=== PATIENT | male | born 1975 | race Caucasian/White ===

== ENCOUNTER → 2017-12-24 12:06 | Outpatient (CLI) | payer MEDICARE, MEDICAID, SELFPAY ==
[2017-12-24 13:05] LABS: Absolute Lymphocyte Count 2.02 X10^3/ul (0.83-4.51); Absolute Neutrophil Count 2.7 X10^3/uL (2.0-7.7); Basophil# 0.01 X10^3/uL; Basophil% 0.2 % (0-1); Eosinophil# 0.07 X10^3/uL; Eosinophils% 1.3 % (0-5); Hematocrit 42.7 % (40-54); Hemoglobin 14.9 g/dl (13.0-16.5); Lymphocyte # 2.02 X10^3/ul (4.0); Lymphocyte % 36.6 % (19-41); Mean Corp Hgb Conc 34.9 g/gl (32-36); Mean Corpuscular Hgb 31.2 pg (27.0-32.0); Mean Corpuscular Volume 89.3 fL (80-94); Mean Platelet Vol. 10.2 fl (6.2-12.0); Monocyte# 0.65 X10^3/uL; Monocyte% 11.8 % (0-10); Neutrophil # 2.74 X10^3/uL (2.7-7.7); Neutrophil % 49.6 % (47-70); Platelet Count 217 K/mm3 (150-450); RBC Distribution Width CV 12.8 % (11.6-14.6); RBC Distribution Width SD 41.5 fl (35.1-43.9); Red Blood Count 4.78 M/mm3 (4.6-6.2); White Blood Count 5.5 K/mm3 (4.4-11.0)
[2017-12-24 13:13] LABS: POSITIVE COUNT NO; POSITIVE DIFFERENTIAL NO; POSITIVE MORPHOLOGY NO
[2017-12-24 13:35] LABS: AST(SGOT) 14 U/L (15-37); Alanine Aminotransfer ALT/SGPT 27 U/L (16-61); Albumin, Serum 3.8 g/dL (3.2-5.0); Alkaline Phosphatase 90 U/L (45-117); Anion Gap 8 (5-15); BUN 14 mg/dL (7-18); BUN/Creat Ratio 17.9 RATIO (10-20); Calcium,Total 8.8 mg/dL (8.5-10.1); Chloride 108 mmol/L (98-107); Creatinine, Serum 0.78 mg/dL (0.70-1.30); EST Glomerular Filtration Rate 114 mL/min (>60); Est Glom Filt Rate - Afr Amer 138 mL/min (>60); Globulin 3.8 g/dL (2.2-4.2); Glucose 99 mg/dL (74-106); Potassium 4.6 mmol/L (3.5-5.1); Protein, Total 7.6 g/dL (6.4-8.2); Sodium Level 143 mmol/L (136-145); Thyroid Stim Hormone (TSH) 1.85 uIU/mL (0.358-3.74)
== END ==
PROVIDERS: Family Provider Family Medicine Geriatric Medicine; PCP Family Medicine Geriatric Medicine; Visit Provider Family Medicine Geriatric Medicine
DX: I10 Essential (primary) hypertension (principal)
CPT/HCPCS: 36415; 80053; 84443; 85025

== ENCOUNTER → 2018-02-02 15:41 | Outpatient (CLI) | payer MEDICARE, MEDICAID, SELFPAY ==
[2018-02-02 16:18] LABS: Absolute Lymphocyte Count 2.21 X10^3/ul (0.83-4.51); Absolute Neutrophil Count 4.4 X10^3/uL (2.0-7.7); Basophil# 0.01 X10^3/uL; Basophil% 0.1 % (0-1); Eosinophil# 0.16 X10^3/uL; Eosinophils% 2.1 % (0-5); Hematocrit 38.9 % (40-54); Hemoglobin 13.1 g/dl (13.0-16.5); Lymphocyte # 2.21 X10^3/ul (4.0); Lymphocyte % 28.6 % (19-41); Mean Corp Hgb Conc 33.7 g/gl (32-36); Mean Corpuscular Hgb 30.8 pg (27.0-32.0); Mean Corpuscular Volume 91.3 fL (80-94); Mean Platelet Vol. 9.5 fl (6.2-12.0); Monocyte% 11.7 % (0-10); Neutrophil # 4.41 X10^3/uL (2.7-7.7); Neutrophil % 57.1 % (47-70); Platelet Count 375 K/mm3 (150-450); RBC Distribution Width CV 12.5 % (11.6-14.6); RBC Distribution Width SD 40.8 fl (35.1-43.9); Red Blood Count 4.26 M/mm3 (4.6-6.2); White Blood Count 7.7 K/mm3 (4.4-11.0)
[2018-02-02 16:22] LABS: POSITIVE COUNT NO; POSITIVE DIFFERENTIAL NO; POSITIVE MORPHOLOGY NO
[2018-02-02 16:29] LABS: Erythrocyte Sedimentation Rate 58 mm/hr (0-15)
[2018-02-02 16:41] LABS: Anion Gap 10 (5-15); BUN 15 mg/dL (7-18); BUN/Creat Ratio 18.2 RATIO (10-20); Calcium,Total 9.2 mg/dL (8.5-10.1); Chloride 102 mmol/L (98-107); Creatinine, Serum 0.82 mg/dL (0.70-1.30); EST Glomerular Filtration Rate 108 mL/min (>60); Est Glom Filt Rate - Afr Amer 130 mL/min (>60); Glucose 91 mg/dL (74-106); Potassium 4.1 mmol/L (3.5-5.1); Sodium Level 140 mmol/L (136-145); Uric Acid 6.8 mg/dL (3.5-7.2)
== END ==
PROVIDERS: Family Provider Family Medicine Geriatric Medicine; PCP Family Medicine Geriatric Medicine; Visit Provider Family Medicine Geriatric Medicine
DX: I10 Essential (primary) hypertension (principal); M10.9 Gout, unspecified; R60.9 Edema, unspecified
CPT/HCPCS: 36415; 80048; 84550; 85025; 85652; 86140

== ENCOUNTER → 2018-02-02 15:44 | Outpatient (CLI) | payer MEDICARE, MEDICAID, SELFPAY ==
--- NOTE | 2018-02-02 15:47 | VDLE_ITS ---
Reason For Study: LEG SWELLING RIGHT LEFT GSV is normal. GSV is normal. CFV is compressible, spontaneous, phasic, CFV is compressible, spontaneous, phasic, competent and demonstrates normal competent, and demonstrates normal augmentation. augmentation. FV is compressible, spontaneous, phasic, FV is compressible, spontaneous, phasic, competent and demonstrates normal competent and demonstrates normal augmentation. augmentation. POP V is compressible, spontaneous, phasic, POP V is compressible, spontaneous, phasic, competent and demonstrates normal competent and demonstrates normal augmentation. augmentation. T/P Trunk is compressible. T/P Trunk is compressible. PTV is compressible. PTV is compressible. RT PerV is compressible. LT PerV is compressible. Procedure Exam performed in department. A preliminary report was called and/or faxed to Dr. Hu. Interpretation Summary Deep veins of the lower extremities are bilaterally patent and compressible segmentally. There is no evidence of deep vein thrombosis on either side. Valvular competence appears intact within the proximal deep venous systems bilaterally. The greater saphenous veins appear bilaterally patent and compressible segmentally. Ordering Physician: Emiliano Hu Referring Physician: Emiliano Hu Chi Performed By: Yael Smith RVT
--- NOTE | 2018-02-02 16:10 | RAD_ITS ---
STUDY: X-RAY - RIGHT KNEE REASON FOR EXAM: Male, 43 years old. Pain, no known injury TECHNIQUE: 4 view(s) of the knee. COMPARISON: None. FINDINGS: Normal visualized distal femur. Normal visualized proximal tibia and fibula. Normal proximal tibiofibular articulation. Normal medial femorotibial compartment. Normal lateral femorotibial compartment. Normal patellofemoral articulation. There is a soft tissue prominence in the suprapatellar region suggesting a small volume joint effusion. The soft tissue structures are unremarkable. RAD/Knee 4 or More Views IMPRESSION: Mild effusion. Electronically Signed: Elinor Higginbotham MD at 7:31 EDT , Service support ,
== END ==
PROVIDERS: Family Provider Family Medicine Geriatric Medicine; PCP Family Medicine Geriatric Medicine; Visit Provider Family Medicine Geriatric Medicine
DX: R60.0 Localized edema (principal); M25.561 Pain in right knee; I10 Essential (primary) hypertension; M10.9 Gout, unspecified
CPT/HCPCS: 36415; 73564; 80048; 84550; 85025; 85652; 86140; 93970

== ENCOUNTER → 2018-03-01 11:55 | Outpatient (CLI) | payer MEDICARE, MEDICAID, SELFPAY ==
[2018-03-01 13:47] LABS: Platelet Count 168 K/mm3 (150-450)
[2018-03-01 13:58] LABS: AST(SGOT) 11 U/L (15-37); Alanine Aminotransfer ALT/SGPT 25 U/L (16-61)
[2018-03-01 14:04] LABS: Hemoglobin A1c 5.2 % (4.2-6.3)
[2018-03-01 14:08] LABS: Valproic Acid (Depakene) Level 23 ug/mL (50-100)
== END ==
PROVIDERS: Family Provider Family Medicine Geriatric Medicine; PCP Family Medicine Geriatric Medicine; Visit Provider Psychiatry & Neurology Psychiatry
DX: Z79.899 Other long term (current) drug therapy (principal)
CPT/HCPCS: 36415; 80164; 83036; 84450; 84460; 85049

== ENCOUNTER → 2018-08-18 09:39 | Outpatient (CLI) | payer MEDICARE, MEDICAID, SELFPAY ==
[2018-08-18 12:04] LABS: Platelet Count 235 K/mm3 (150-450)
[2018-08-18 12:38] LABS: AST(SGOT) 9 U/L (15-37); Alanine Aminotransfer ALT/SGPT 24 U/L (16-61)
[2018-08-18 12:40] LABS: Valproic Acid (Depakene) Level 33 ug/mL (50-100)
== END ==
PROVIDERS: Family Provider Family Medicine Geriatric Medicine; PCP Family Medicine Geriatric Medicine; Referring Provider Psychiatry & Neurology Psychiatry; Visit Provider Psychiatry & Neurology Psychiatry
DX: Z79.899 Other long term (current) drug therapy (principal)
CPT/HCPCS: 36415; 80164; 84450; 84460; 85049

== ENCOUNTER → 2018-10-07 09:49 | Outpatient (CLI) | payer MEDICARE, MEDICAID, SELFPAY ==
--- NOTE | 2018-10-07 09:52 | RAD_ITS ---
STUDY: X-RAY - LEFT KNEE REASON FOR EXAM: Male, 43 years old. Pain, 2 weeks. No injury. TECHNIQUE: 5 view(s) of the knee. COMPARISON: None. FINDINGS: There is evidence of small suprapatellar knee joint effusion. There appears to be mild thickening of the prepatellar superficial soft tissues. Clinically correlate. Osseous structures about the knee are intact, normally articulated, normally mineralized, with no significant degenerative features. RAD/Knee 4 or More Views IMPRESSION: Suspected effusion. Questionable prepatellar superficial soft tissue thickening. Clinically correlate. No acute osseous process and no significant degenerative features. Electronically Signed: Jae Salas MD at 14:05 EST Tel , Service support ,
== END ==
PROVIDERS: Family Provider Family Medicine Geriatric Medicine; PCP Family Medicine Geriatric Medicine; Referring Provider Family Medicine Geriatric Medicine; Visit Provider Family Medicine Geriatric Medicine
DX: M25.569 Pain in unspecified knee (principal)
CPT/HCPCS: 73564

== ENCOUNTER → 2018-12-21 | Outpatient (CLI) | payer MEDICARE, MEDICAID, SELFPAY ==
--- NOTE | 2018-12-21 10:30 | RAD_ITS ---
STUDY: X-RAY - LUMBAR SPINE REASON FOR EXAM: Male, 43 years old. Lifting injury. TECHNIQUE: 3 view(s) of the lumbar spine were obtained. COMPARISON: None FINDINGS: Normal lumbar lordosis. There is no substantial scoliosis. There is a normal alignment of the vertebrae. Normal vertebral bodies and endplates. Normal disc space heights. There is no evidence of acute fracture or loss of vertebral axial height. The soft tissue structures are unremarkable. RAD/Lumbar Spine 2 or 3 Views IMPRESSION: Normal x-ray examination of the lumbar spine. Electronically Signed: Dariel Cedillo DO at 23:54 EST Tel [phone], Service support ,
--- NOTE | 2018-12-21 10:31 | RAD_ITS ---
STUDY: X-RAY - THORACIC SPINE REASON FOR EXAM: Male, 43 years old. Lifting injury. Mid to lower back pain. TECHNIQUE: 4 view(s) of the thoracic spine were obtained. COMPARISON: None. FINDINGS: Normal kyphosis of the thoracic spine. There is no substantial scoliosis. Normal thoracic vertebrae and endplates. Normal disc space heights. There is no evidence of acute fracture or loss of vertebral axial height. The soft tissue structures are unremarkable. RAD/Thoracic Spine 3 Views IMPRESSION: Normal x-ray examination of the thoracic spine. Electronically Signed: Dariel Cedillo DO at 23:53 EST Tel [phone], Service support ,
== END | disposition home or self-care (01) ==
PROVIDERS: Family Provider Family Medicine Geriatric Medicine; PCP Family Medicine Geriatric Medicine; Referring Provider Family Medicine Geriatric Medicine; Visit Provider Family Medicine Geriatric Medicine
DX: M54.5 Low back pain (principal); M51.84 Other intervertebral disc disorders, thoracic region
CPT/HCPCS: 72072; 72100

== ENCOUNTER → 2018-12-30 14:05 | Outpatient (CLI) | payer MEDICARE, MEDICAID, SELFPAY ==
[2018-12-30 17:19] LABS: Absolute Lymphocyte Count 2.12 X10^3/ul (0.83-4.51); Absolute Neutrophil Count 8.5 X10^3/uL (2.0-7.7); Basophil# 0.02 X10^3/uL; Basophil% 0.2 % (0-1); Eosinophil# 0.07 X10^3/uL; Eosinophils% 0.6 % (0-5); Hematocrit 44.8 % (40-54); Hemoglobin 14.6 g/dl (13.0-16.5); Lymphocyte # 2.12 X10^3/ul (4.0); Lymphocyte % 17.3 % (19-41); Mean Corp Hgb Conc 32.6 g/gl (32-36); Mean Corpuscular Hgb 30.8 pg (27.0-32.0); Mean Corpuscular Volume 94.5 fL (80-94); Mean Platelet Vol. 10.1 fl (6.2-12.0); Monocyte# 1.29 X10^3/uL; Monocyte% 10.5 % (0-10); Neutrophil # 8.49 X10^3/uL (2.7-7.7); Neutrophil % 69.3 % (47-70); POSITIVE COUNT YES; POSITIVE DIFFERENTIAL NO; POSITIVE MORPHOLOGY YES; Platelet Count 290 K/mm3 (150-450); RBC Distribution Width CV 13.4 % (11.6-14.6); RBC Distribution Width SD 45.1 fl (35.1-43.9); Red Blood Count 4.74 M/mm3 (4.6-6.2); White Blood Count 12.3 K/mm3 (4.4-11.0)
[2018-12-30 17:32] LABS: ALB/GLOB Ratio 1.2 RATIO (0.9-2.4); AST(SGOT) 9 U/L (15-37); Alanine Aminotransfer ALT/SGPT 32 U/L (16-61); Albumin, Serum 3.7 g/dL (3.2-5.0); Alkaline Phosphatase 80 U/L (45-117); Anion Gap 10 (5-15); BUN 19 mg/dL (7-18); BUN/Creat Ratio 16.1 RATIO (10-20); Calcium,Total 8.6 mg/dL (8.5-10.1); Chloride 101 mmol/L (98-107); Creatinine, Serum 1.18 mg/dL (0.70-1.30); EST Glomerular Filtration Rate 71 mL/min (>60); Est Glom Filt Rate - Afr Amer 86 mL/min (>60); Glucose 126 mg/dL (74-106); Protein, Total 6.7 g/dL (6.4-8.2); Sodium Level 136 mmol/L (136-145); Thyroid Stim Hormone (TSH) 1.56 uIU/mL (0.358-3.74)
[2019-01-03 09:11] LABS: Pathologist Review Reviewed
== END ==
PROVIDERS: Family Provider Family Medicine Geriatric Medicine; PCP Family Medicine Geriatric Medicine; Visit Provider Family Medicine Geriatric Medicine
DX: I10 Essential (primary) hypertension (principal)
CPT/HCPCS: 36415; 80053; 84443; 85025

== ENCOUNTER → 2019-01-31 11:48 | Outpatient (CLI) | payer MEDICARE, SELFPAY ==
[2019-01-31 11:21] VITALS: BMI 29.9
[2019-01-31 13:54] LABS: Platelet Count 230 K/mm3 (150-450)
[2019-01-31 14:02] LABS: Valproic Acid (Depakene) Level 36 ug/mL (50-100)
[2019-01-31 14:03] LABS: AST(SGOT) 10 U/L (15-37); Alanine Aminotransfer ALT/SGPT 22 U/L (16-61)
== END ==
PROVIDERS: Family Provider Family Medicine Geriatric Medicine; PCP Family Medicine Geriatric Medicine; Referring Provider Psychiatry & Neurology Psychiatry; Visit Provider Psychiatry & Neurology Psychiatry
DX: Z79.899 Other long term (current) drug therapy (principal)
CPT/HCPCS: 36415; 80164; 82140; 84450; 84460; 85049

== ENCOUNTER → 2019-07-20 07:41 | Outpatient (CLI) | payer MEDICARE, SELFPAY ==
[2019-02-28 14:34] VITALS: BMI 29.9
[2019-07-20 08:13] LABS: Platelet Count 219 K/mm3 (150-450)
[2019-07-20 08:47] LABS: Valproic Acid (Depakene) Level 43 ug/mL (50-100)
[2019-07-20 08:52] LABS: AST(SGOT) 12 U/L (15-37); Alanine Aminotransfer ALT/SGPT 21 U/L (16-61); Prolactin 13.9 ng/mL
== END ==
PROVIDERS: Family Provider Family Medicine Geriatric Medicine; PCP Family Medicine Geriatric Medicine; Referring Provider Psychiatry & Neurology Psychiatry; Visit Provider Psychiatry & Neurology Psychiatry
DX: F19.10 Other psychoactive substance abuse, uncomplicated (principal); R53.83 Other fatigue; Z79.899 Other long term (current) drug therapy
CPT/HCPCS: 36415; 80164; 82140; 84146; 84450; 84460; 85049

== ENCOUNTER → 2020-07-17 05:40 | Outpatient (CLI) | payer MEDICARE, MEDICAID, SELFPAY ==
[2019-02-28 14:34] VITALS: BMI 29.9
[2020-07-17 09:34] LABS: Platelet Count 238 K/mm3 (150-450)
[2020-07-17 09:49] LABS: AST(SGOT) 24 U/L (15-37); Alanine Aminotransfer ALT/SGPT 48 U/L (16-61); Valproic Acid (Depakene) Level 36 ug/mL (50-100)
[2020-07-17 10:04] LABS: Hemoglobin A1c 4.9 % (3.8-5.6)
== END ==
PROVIDERS: PCP Family Medicine Geriatric Medicine; Visit Provider Psychiatry & Neurology Psychiatry
DX: Z79.899 Other long term (current) drug therapy (principal)
CPT/HCPCS: 36415; 80164; 82140; 83036; 84450; 84460; 85049

== ENCOUNTER → 2020-12-05 11:30 | Outpatient (CLI) | payer MEDICARE, SELFPAY ==
[2019-02-28 14:34] VITALS: BMI 29.9
--- NOTE | 2020-12-05 11:47 | CT_ITS ---
STUDY: CT BRAIN WITHOUT CONTRAST REASON FOR EXAM: Male, 45 years old. ABNORMAL GAIT RADIATION DOSAGE (If Supplied By Facility): CTDIvol = ( 44.99 ) mGy, DLP = ( 796.11 ) mGycm TECHNIQUE: Transaxial CT imaging of the brain was performed without administration of intravenous contrast material. Individualized dose optimization techniques were used for this CT. COMPARISON: No relevant priors. FINDINGS: Normal soft tissue structures. Normal calvarium. Normal size ventricles and extra-axial spaces for the patient''s age. Normal white matter tracts of the cerebral hemispheres. Normal basal ganglia and thalami. Normal brainstem. Normal cerebellum. There is no intracranial hemorrhage. There are no findings of an acute ischemic infarction. Normal visualized paranasal sinuses. CT/Brain/Head without Contrast IMPRESSION: Normal unenhanced CT scan of the brain. Electronically Signed: Elijah Salmon MD at 12:12 EST , Service support ,
[2020-12-05 11:58] LABS: Absolute Lymphocyte Count 1.88 X10^3/uL (0.83-4.51); Absolute Neutrophil Count 4.4 X10^3/uL (2.0-7.7); Basophil# 0.02 X10^3/uL; Basophil% 0.3 % (0-1); Eosinophil# 0.04 X10^3/uL; Eosinophils% 0.6 % (0-5); Hematocrit 43.1 % (40-54); Hemoglobin 14.5 g/dL (13.0-16.5); Lymphocyte # 1.88 X10^3/ul (4.0); Lymphocyte % 27.5 % (19-41); Mean Corp Hgb Conc 33.6 g/dL (32-36); Mean Corpuscular Hgb 31.5 pg (27.0-32.0); Mean Corpuscular Volume 93.5 fL (80-94); Monocyte# 0.46 X10^3/uL; Monocyte% 6.7 % (0-10); NRBC Flagged by Analyzer 0 % (0-5); Neutrophil # 4.41 X10^3/uL (2.7-7.7); Neutrophil % 64.6 % (47-70); Platelet Count 246 K/mm3 (150-450); RBC Distribution Width CV 12.8 % (11.6-14.6); RBC Distribution Width SD 43.6 fl (35.1-43.9); Red Blood Count 4.61 M/mm3 (4.6-6.2); White Blood Count 6.8 K/mm3 (4.4-11.0)
[2020-12-05 12:49] LABS: ALB/GLOB Ratio 1.2 RATIO (0.9-2.4); AST(SGOT) 19 U/L (15-37); Alanine Aminotransfer ALT/SGPT 31 U/L (16-61); Albumin, Serum 4.2 g/dL (3.2-5.0); Alkaline Phosphatase 92 U/L (45-117); Anion Gap 4 (5-15); BUN 14 mg/dL (7-18); BUN/Creat Ratio 17.9 RATIO (10-20); Calcium,Total 9.4 mg/dL (8.5-10.1); Chloride 105 mmol/L (98-107); Creatinine, Serum 0.78 mg/dL (0.70-1.30); EST Glomerular Filtration Rate 113 mL/min (>60); Est Glom Filt Rate - Afr Amer 136 mL/min (>60); Globulin 3.5 g/dL (2.2-4.2); Glucose 78 mg/dL (74-106); Protein, Total 7.7 g/dL (6.4-8.2); Sodium Level 138 mmol/L (136-145)
== END ==
LOC: POLAB3 11:44 → CT 11:44
PROVIDERS: PCP Family Medicine Geriatric Medicine; Visit Provider Family Medicine Geriatric Medicine
DX: R26.9 Unspecified abnormalities of gait and mobility (principal)
CPT/HCPCS: 36415; 70450; 80053; 85025

== ENCOUNTER → 2021-01-09 13:09 | Outpatient (CLI) | payer MEDICARE, SELFPAY ==
[2019-02-28 14:34] VITALS: BMI 29.9
[2021-01-09 16:34] LABS: Platelet Count 262 K/mm3 (150-450)
[2021-01-09 16:58] LABS: AST(SGOT) 15 U/L (15-37); Alanine Aminotransfer ALT/SGPT 30 U/L (16-61); Valproic Acid (Depakene) Level 36 ug/mL (50-100)
== END ==
PROVIDERS: PCP Family Medicine Geriatric Medicine; Visit Provider Psychiatry & Neurology Psychiatry
DX: Z79.899 Other long term (current) drug therapy (principal)
CPT/HCPCS: 36415; 80164; 83036; 84450; 84460; 85049

== ENCOUNTER → 2021-02-07 11:58 | Outpatient (CLI) | payer MEDICARE, SELFPAY ==
[2019-02-28 14:34] VITALS: BMI 29.9
[2021-02-07 12:27] LABS: Absolute Lymphocyte Count 1.49 X10^3/uL (0.83-4.51); Absolute Neutrophil Count 4.4 X10^3/uL (2.0-7.7); Basophil# 0.01 X10^3/uL; Basophil% 0.2 % (0-1); Eosinophil# 0.02 X10^3/uL; Eosinophils% 0.3 % (0-5); Hematocrit 41.3 % (40-54); Hemoglobin 14.1 g/dL (13.0-16.5); Lymphocyte # 1.49 X10^3/ul (0.83-4.51); Lymphocyte % 23.5 % (19-41); Mean Corp Hgb Conc 34.1 g/dL (32-36); Mean Corpuscular Hgb 31.5 pg (27.0-32.0); Mean Corpuscular Volume 92.4 fL (80-94); Mean Platelet Vol. 9.5 fl (6.2-12.0); Monocyte# 0.41 X10^3/uL; Monocyte% 6.5 % (0-10); NRBC Flagged by Analyzer 0 % (0-5); Neutrophil # 4.39 X10^3/uL (2.7-7.7); Neutrophil % 69.2 % (47-70); Platelet Count 250 K/mm3 (150-450); RBC Distribution Width CV 12.3 % (11.6-14.6); RBC Distribution Width SD 42.2 fl (35.1-43.9); Red Blood Count 4.47 M/mm3 (4.6-6.2); White Blood Count 6.3 K/mm3 (4.4-11.0)
[2021-02-07 13:25] LABS: Albumin, Serum 3.9 g/dL (3.2-5.0); BUN 13 mg/dL (7-18); BUN/Creat Ratio 15.9 RATIO (10-20); Creatinine, Serum 0.82 mg/dL (0.70-1.30); EST Glomerular Filtration Rate 107 mL/min (>60); Est Glom Filt Rate - Afr Amer 129 mL/min (>60); Glucose 245 mg/dL (74-106); Protein, Total 7.2 g/dL (6.4-8.2)
[2021-02-07 13:26] LABS: ALB/GLOB Ratio 1.2 RATIO (0.9-2.4); AST(SGOT) 17 U/L (15-37); Alanine Aminotransfer ALT/SGPT 26 U/L (16-61); Alkaline Phosphatase 84 U/L (45-117); Anion Gap 6 (5-15); Calcium,Total 9.3 mg/dL (8.5-10.1); Chloride 103 mmol/L (98-107); Globulin 3.3 g/dL (2.2-4.2); Potassium 3.8 mmol/L (3.5-5.1); Sodium Level 138 mmol/L (136-145); Thyroid Stim Hormone (TSH) 1.35 uIU/mL (0.358-3.74)
[2021-02-08 10:42] LABS: Hemoglobin A1c 4.9 % (3.8-5.6)
== END ==
PROVIDERS: PCP Family Medicine Geriatric Medicine; Visit Provider Family Medicine Geriatric Medicine
DX: I10 Essential (primary) hypertension (principal); R79.9 Abnormal finding of blood chemistry, unspecified
CPT/HCPCS: 36415; 80053; 83036; 84443; 85025

== ENCOUNTER → 2022-02-10 | Outpatient (CLI) | payer MEDICARE, SELFPAY ==
[2022-02-10 11:36] LABS: Absolute Lymphocyte Count 1.98 X10^3/uL (0.83-4.51); Absolute Neutrophil Count 5.9 X10^3/uL (2.0-7.7); Basophil# 0.02 X10^3/uL; Basophil% 0.2 % (0-1); Eosinophil# 0.05 X10^3/uL; Eosinophils% 0.6 % (0-5); Hematocrit 43.2 % (40-54); Hemoglobin 14.7 g/dL (13.0-16.5); Lymphocyte # 1.98 X10^3/ul (0.83-4.51); Mean Corpuscular Hgb 31.6 pg (27.0-32.0); Mean Corpuscular Volume 92.9 fL (80-94); Mean Platelet Vol. 9.7 fl (6.2-12.0); Monocyte# 0.68 X10^3/uL; Monocyte% 7.9 % (0-10); NRBC Flagged by Analyzer 0 % (0-5); Neutrophil # 5.85 X10^3/uL (2.7-7.7); Platelet Count 232 K/mm3 (150-450); RBC Distribution Width CV 12.7 % (11.6-14.6); RBC Distribution Width SD 43.5 fl (35.1-43.9); Red Blood Count 4.65 M/mm3 (4.6-6.2); White Blood Count 8.6 K/mm3 (4.4-11.0)
[2022-02-10 12:01] LABS: ALB/GLOB Ratio 1.2 RATIO (0.9-2.4); AST(SGOT) 11 U/L (15-37); Alanine Aminotransfer ALT/SGPT 15 U/L (16-61); Alkaline Phosphatase 89 U/L (45-117); Anion Gap 4 (5-15); BUN 17 mg/dL (7-18); BUN/Creat Ratio 19.6 RATIO (10-20); Calcium,Total 8.8 mg/dL (8.5-10.1); Chloride 105 mmol/L (98-107); Creatinine, Serum 0.87 mg/dL (0.70-1.30); EST Glomerular Filtration Rate 99 mL/min (>60); Est Glom Filt Rate - Afr Amer 120 mL/min (>60); Globulin 3.3 g/dL (2.2-4.2); Glucose 101 mg/dL (74-106); Potassium 4.3 mmol/L (3.5-5.1); Protein, Total 7.3 g/dL (6.4-8.2); Sodium Level 139 mmol/L (136-145); Uric Acid 4.1 mg/dL (3.5-7.2)
== END | disposition home or self-care (01) ==
LOC: POLAB3 10:16
PROVIDERS: PCP Family Medicine Geriatric Medicine; Visit Provider Family Medicine Geriatric Medicine
DX: I10 Essential (primary) hypertension (principal); M10.9 Gout, unspecified
CPT/HCPCS: 36415; 80053; 84443; 84550; 85025

== ENCOUNTER → 2022-11-25 | Outpatient (CLI) | payer MEDICARE, MEDICAID, SELFPAY ==
[2022-11-25 10:56] LABS: Absolute Lymphocyte Count 2.09 X10^3/uL (0.83-4.51); Basophil# 0.02 X10^3/uL; Basophil% 0.3 % (0-1); Eosinophil# 0.07 X10^3/uL; Eosinophils% 0.9 % (0-5); Hematocrit 42.2 % (40-54); Hemoglobin 14.7 g/dL (13.0-16.5); Lymphocyte # 2.09 X10^3/ul (0.83-4.51); Lymphocyte % 26.5 % (19-41); Mean Corp Hgb Conc 34.8 g/dL (32-36); Mean Corpuscular Hgb 31.7 pg (27.0-32.0); Mean Corpuscular Volume 90.9 fL (80-94); Mean Platelet Vol. 9.4 fl (6.2-12.0); Monocyte# 0.69 X10^3/uL; Monocyte% 8.8 % (0-10); NRBC Flagged by Analyzer 0 % (0-5); Neutrophil # 4.98 X10^3/uL (2.7-7.7); Neutrophil % 63.1 % (47-70); Platelet Count 221 K/mm3 (150-450); RBC Distribution Width CV 12.7 % (11.6-14.6); RBC Distribution Width SD 41.5 fl (35.1-43.9); Red Blood Count 4.64 M/mm3 (4.6-6.2); White Blood Count 7.9 K/mm3 (4.4-11.0)
[2022-11-25 11:26] LABS: Valproic Acid (Depakene) Level 27 ug/mL (50-100)
[2022-11-25 11:43] LABS: ALB/GLOB Ratio 1.2 RATIO (0.9-2.4); AST(SGOT) 14 U/L (15-37); Alanine Aminotransfer ALT/SGPT 8 U/L (16-61); Alkaline Phosphatase 116 U/L (45-117); Anion Gap 5 (5-15); BUN 13 mg/dL (7-18); BUN/Creat Ratio 13.6 RATIO (10-20); Calcium,Total 9.4 mg/dL (8.5-10.1); Chloride 108 mmol/L (98-107); Creatinine, Serum 0.96 mg/dL (0.70-1.30); EST Glomerular Filtration Rate 89 mL/min (>60); Est Glom Filt Rate - Afr Amer 107 mL/min (>60); Globulin 3.4 g/dL (2.2-4.2); Glucose 97 mg/dL (74-106); Potassium 4.2 mmol/L (3.5-5.1); Protein, Total 7.4 g/dL (6.4-8.2); Sodium Level 143 mmol/L (136-145); Thyroid Stim Hormone (TSH) 2.99 uIU/mL (0.358-3.74)
== END | disposition home or self-care (01) ==
PROVIDERS: PCP Family Medicine Geriatric Medicine; Visit Provider Family Medicine Geriatric Medicine
DX: I10 Essential (primary) hypertension (principal); Z79.899 Other long term (current) drug therapy
CPT/HCPCS: 36415; 80053; 80164; 82140; 84443; 85025

== ENCOUNTER → 2023-02-25 | Outpatient (CLI) | payer MEDICARE, MEDICAID, SELFPAY ==
[2023-02-25 12:18] LABS: Erythrocyte Sedimentation Rate 6 mm/hr (0-20)
[2023-02-25 12:20] LABS: ALB/GLOB Ratio 1.1 RATIO (0.9-2.4); AST(SGOT) 9 U/L (15-37); Alanine Aminotransfer ALT/SGPT 13 U/L (16-61); Albumin, Serum 3.9 g/dL (3.2-5.0); Alkaline Phosphatase 110 U/L (45-117); Anion Gap 6 (5-15); BUN 15 mg/dL (7-18); BUN/Creat Ratio 16.2 RATIO (10-20); CRP < 2.90 mg/L (0.0-3.0); Calcium,Total 9.7 mg/dL (8.5-10.1); Chloride 105 mmol/L (98-107); Creatinine, Serum 0.92 mg/dL (0.70-1.30); EST Glomerular Filtration Rate 92 mL/min (>60); Est Glom Filt Rate - Afr Amer 111 mL/min (>60); Globulin 3.6 g/dL (2.2-4.2); Glucose 89 mg/dL (74-106); LDH 156 U/L (87-241); Protein, Total 7.5 g/dL (6.4-8.2); Sodium Level 142 mmol/L (136-145); Thyroid Stim Hormone (TSH) 1.81 uIU/mL (0.358-3.74)
[2023-02-25 13:18] LABS: Absolute Lymphocyte Count 1.73 X10^3/uL (0.83-4.51); Absolute Neutrophil Count 5.4 X10^3/uL (2.0-7.7); Basophil# 0.03 X10^3/uL; Basophil% 0.4 % (0-1); Eosinophil# 0.05 X10^3/uL; Eosinophils% 0.6 % (0-5); Hematocrit 45.3 % (40-54); Hemoglobin 14.9 g/dL (13.0-16.5); Lymphocyte # 1.73 X10^3/ul (0.83-4.51); Lymphocyte % 21.8 % (19-41); Mean Corp Hgb Conc 32.9 g/dL (32-36); Mean Corpuscular Hgb 31.3 pg (27.0-32.0); Mean Corpuscular Volume 95.2 fL (80-94); Mean Platelet Vol. 9.7 fl (6.2-12.0); Monocyte# 0.71 X10^3/uL; NRBC Flagged by Analyzer 0 % (0-5); Neutrophil # 5.36 X10^3/uL (2.7-7.7); Neutrophil % 67.7 % (47-70); Platelet Count 223 K/mm3 (150-450); RBC Distribution Width CV 12.3 % (11.6-14.6); RBC Distribution Width SD 43.1 fl (35.1-43.9); Red Blood Count 4.76 M/mm3 (4.6-6.2); White Blood Count 7.9 K/mm3 (4.4-11.0)
[2023-02-26 13:07] LABS: Anti-Centromere B Ab <0.2 AI (0.0-0.9); Anti-Chromatin <0.2 AI (0.0-0.9); Anti-Jo <0.2 AI (0.0-0.9); Anti-Mitochondrial AB <20.0 Units (0.0-20.0); Anti-Scleroderma-70 AB <0.2 AI (0.0-0.9); Anti-dsDNA Ab 1 IU/mL (0-9); RNP Ab <0.2 AI (0.0-0.9); SJOGREN'S Anti-SS-A test < 0.2 AI (0.0-0.9); SJOGREN'S Anti-SS-B test < 0.2 AI (0.0-0.9); Smith Ab <0.2 AI (0.0-0.9)
== END | disposition home or self-care (01) ==
LOC: POLAB3 10:03
PROVIDERS: Internal Medicine Gastroenterology; PCP Family Medicine Geriatric Medicine; Visit Provider Family Medicine Geriatric Medicine
DX: I10 Essential (primary) hypertension (principal)
CPT/HCPCS: 36415; 80053; 83516; 83615; 84443; 85025; 85652; 86140; 86225; 86235

== ENCOUNTER → 2023-04-07 | Outpatient (CLI) | payer MEDICARE, MEDICAID, SELFPAY ==
--- NOTE | 2023-04-07 09:19 | US_ITS ---
STUDY: ABDOMINAL ULTRASOUND - RIGHT UPPER QUADRANT REASON FOR VISIT: Male, 48 years old hyperammonemia TECHNIQUE: Ultrasound evaluation of the right upper quadrant was performed with real-time and static roger-scale imaging. TECHNICAL QUALITY: Limited. Poor visibility of the pancreas and common bile duct. COMPARISON: None. FINDINGS: Liver: Normal size and echogenicity. Normal contour. No mass lesion. No intrahepatic biliary ductal dilation. Gallbladder: Anechoic fluid in the gallbladder without abnormal distention. No wall thickening, sludge or stones. No polyp. Negative sonographic Newsome''s sign. Common Bile Duct (C.B.D.): The common bile duct is not visualized, obscured by gas. Pancreas: Very limited assessment. No abnormality within limits of the exam. Right Kidney: 12.6 cm length kidney shows normal size and contour. No cortical thinning. No solid or cystic mass lesion. No hydronephrosis. No genitourinary stone. US/Abdomen Limited IMPRESSION: No abnormality within limits of the exam. Electronically Signed: Hunter Ortega DO at 20:44 EDT ,
--- NOTE | 2023-04-07 09:19 | US_ITS ---
STUDY: ABDOMINAL ULTRASOUND - ELASTOGRAPHY REASON FOR VISIT: Male, 48 years old. Elevated ammonia. TECHNIQUE: Liver stiffness measurements were obtained on a Fnbox RS 85 ultrasound machine using a CA 1-7 probe following the SRU guidelines. 3 measurements were obtained using a 2-D-SWE method. TheIQR/M was 13% suggesting a quality data set. TECHNICAL QUALITY: Adequate. COMPARISON: None. FINDINGS: Liver: There is no demonstrated mass lesion. Median liver stiffness measured 6.4 kPa. Abdomen: There is no demonstrated mass lesion. US/Elastography Parenchyma/Organ IMPRESSION: Liver stiffness measures 6.4 kPa compatible with F2-F3 (Mild to moderate liver fibrosis) Metavir score. Electronically Signed: Elijah Salmon MD at 13:50 EDT ,
== END | disposition home or self-care (01) ==
LOC: US 09:16
PROVIDERS: PCP Family Medicine Geriatric Medicine; Referring Provider Internal Medicine Gastroenterology; Visit Provider Internal Medicine Gastroenterology
DX: E72.20 Disorder of urea cycle metabolism, unspecified (principal)
CPT/HCPCS: 76705; 76981

== ENCOUNTER → 2023-05-07 | Outpatient (CLI) | payer MEDICARE, MEDICAID, SELFPAY ==
[2023-03-25] MEDS: Lactated Ringers 1,000 ML 15 ML IV (10:19)
[2023-03-25 10:20] VITALS: BP 121/95; PULSE 104; RESP 18; TEMP 37.1; O2SAT 97; BMI 26.1
--- NOTE | 2023-03-25 10:29 | HP.PCM_ITS ---
HPI - General General Date of Admission: 03/25/23 Date of Service: 03/25/23 Chief Complaint: screening colonoscopy HPI Narrative 48 M who presents to the office today for an initial office visit regarding hyperammonemia and need for screening colonoscopy. He has never had a colonoscopy in the past. PCP OV 11.25.22 for chronic disease f/u of Parkinson, schizoaffective disorder, depression, OCD, PTSD, HTN, hyperlipidemia, gout, BPH ?Biochemical 11.25.22?CBC (plt 221), CMP, ? Valproic acid L27, ammonia H35, AST L14-ALT L3-AP116 *BGI established 02.20.23 presents today with his caregivers Mahsa and Lisseth. There is not much history are Tremaine is unable to provide family or personal ROS Const Constitutional: No anorexia, fatigue, fever(s), weight change or sleep problems Eyes Eyes: No change in vision ENT ENT: No abnormal hearing, difficulty swallowing, mouth lesions, tongue swelling or throat swelling Resp Respiratory: No cough or shortness of breath Cardio Cardiology: No chest pain at rest, chest pain with exertion, shortness of breath or dyspnea on exertion Gastro GI: No difficulty swallowing Genitourinary Male: No difficulty urinating or burning urination Musc Musculoskeletal: No joint pain, joint swelling, muscle weakness or decreased muscle mass Skin Skin: No hair loss in leg, yellowing of the eye, itchy eyes, rash, skin ulcer or skin swelling Neuro Neurology: No abnormal hearing, abnormal movements, confusion, unsteady gait/balance or memory loss Psych Psychiatric: No anxiety, No confusion and No memory loss Endo Endocrine: No fatigue or weight change Aller/Imm Allergy/Immunologic: No itchy eyes, throat swelling or tongue swelling Tristan/Lymp Hematologic/Lymphatic: No easy bleeding, easy bruising or enlarged lymph nodes Exam Const General: cooperative and comfortable Nutritional Appearance: average body habitus and well nourished [facility] Head: normal to inspection Ears: hearing grossly normal bilaterally Nose: external nose normal Face and sinus: normal facial exam Mouth: oral mucosae normal Throat: posterior oropharynx normal Eyes General: appearance normal, both eyes and all related structures Neck Neck: normal visual inspection Chest Chest palpation & inspection: normal inspection of the chest and normal palpation of entire chest wall Resp Effort & Inspection: normal respiratory effort Auscultation: Bilateral: Clear to Auscultation Cardio Palpation: normal PMI Rate: regular rate Rhythm: regular rhythm GI Inspection: normal to inspection Auscultation: normal bowel sounds Percussion: normal to percussion Palpation: no hepatosplenomegaly Skin General: no rashes or lesions noted Neuro General: patient alert Extrem General: normal to inspection Psych Affect: normal affect Quality Reporting Tobacco Screening ([facility] 138) Smoking Status: Never smoker Assessment and Plan Assessment and Plan (1) Hyperammonemia: ?Status:?Chronic ?Plan: The use of valproic acid frequently results in elevated plasma ammonia. In some people, hyperammonemia may be clinically significant, resulting in hyperammonemic encephalopathy, which may be severe. Valproic acid-induced hyperammonemic encephalopathy may occur in people with normal liver function, despite normal doses and serum levels of VPA. He should be? started on oral lactulose, while his w/u is progress to look for signs and chronic liver disease.? Orders: Orders Comprehensive Metabolic Profil Today E72.20 - Disorder of urea cycle metabolism, unspecified ? CRP Today E72.20 - Disorder of urea cycle metabolism, unspecified ? LDH Today E72.20 - Disorder of urea cycle metabolism, unspecified ? CBC W/Diff, Automated Today E72.20 - Disorder of urea cycle metabolism, unspecified ? Erythrocyte Sed Rate Today E72.20 - Disorder of urea cycle metabolism, unspecified ? Anti-Mitochondrial AB Today E72.20 - Disorder of urea cycle metabolism, unspecified ? CANDELARIA Comprehensive Panel Today E72.20 - Disorder of urea cycle metabolism, unspecified ? Angiotensin Convert Enzyme Today E72.20 - Disorder of urea cycle metabolism, unspecified ? ANCA Today E72.20 - Disorder of urea cycle metabolism, unspecified ? Anti-Smooth Muscle ABS Today E72.20 - Disorder of urea cycle metabolism, unspecified ? Ceruloplasmin Today E72.20 - Disorder of urea cycle metabolism, unspecified ? Copper, Serum or Plasma Today E72.20 - Disorder of urea cycle metabolism, unspecified ? Haptoglobin Today E72.20 - Disorder of urea cycle metabolism, unspecified ? Ammonia Today E72.20 - Disorder of urea cycle metabolism, unspecified ? Abdomen Limited Today E72.20 - Disorder of urea cycle metabolism, unspecified ? Elastography Parenchyma/Organ Today E72.20 - Disorder of urea cycle metabolism, unspecified ? Medications: New lactulose 10 grams (15 mL) PO DAILY 473 mL 11RF ? ? PFSH Medical History (Updated 03/20/23 @ 11:41 by Manasa Kline) Anxiety Arthritis BPH (benign prostatic hyperplasia) Gastric reflux GERD (gastroesophageal reflux disease) Gout High cholesterol Hypertension Mental and behavioral problem in adult Moderate major depression Obsessive compulsive disorder Outbursts of explosive behavior Parkinsons disease PTSD (post-traumatic stress disorder) Schizophrenia Unsteady gait Uses wheelchair Wears glasses Home Medications atenolol 50 mg tablet 50 mg PO DAILY 01/31/19 [History Last Taken 03/25/23] divalproex 500 mg tablet,delayed release 500 mg PO QHS 01/31/19 [History Last Taken Unknown] multivitamin (Daily Multi-Vitamin tablet) 1 tab PO DAILY 01/31/19 [History Last Taken Unknown] quetiapine 400 mg tablet,extended release 24 hr (Seroquel XR) 400 mg PO BID 01/31/19 [History Last Taken 03/25/23] tamsulosin 0.4 mg capsule 0.4 mg PO BID 01/31/19 [History Last Taken Unknown] allopurinol 300 mg tablet 300 mg PO DAILY 11/28/22 [History Last Taken Unknown] amantadine HCl 100 mg capsule 100 mg PO BID 11/28/22 [History Last Taken Unknown] fluvoxamine 100 mg tablet 100 mg PO 0800 11/28/22 [History Last Taken 03/25/23] fluvoxamine 50 mg tablet 50 mg PO QHS 11/28/22 [History Last Taken Unknown] haloperidol 5 mg tablet 5 mg PO BID 11/28/22 [History Last Taken 03/25/23] pravastatin 40 mg tablet 40 mg PO QHS 11/28/22 [History Last Taken Unknown] lactulose 10 gram/15 mL (15 mL) oral solution 10 g (15 mL) PO DAILY #473 mL 02/20/23 [Rx Last Taken Unknown] acetaminophen 650 mg tablet,extended release 1,300 mg PO Q12H PRN PAIN 03/20/23 [History Last Taken Unknown] calcium carbonate 500 mg calcium (1,250 mg) tablet (Oyster Shell Calcium 500) 500 mg PO DAILY 03/20/23 [History Last Taken Unknown] carbidopa ER 50 mg-levodopa 200 mg tablet,extended release 1 tab PO TID 03/20/23 [History Last Taken 03/25/23] Allergy/AdvReac Type Severity Reaction Status Date / Time No Known Allergies Allergy Verified 03/25/23 10:18 Social History Smoking Status: Never smoker alcohol intake: never substance use type: does not use what type of physical activity do you participate in: none ROS Review of Systems ROS Unobtainable: other Constitutional Constitutional: Denies fatigue, fever(s), poor appetite, weight gain or weight loss ENT HEENT: Denies mouth lesions Cardiovascular Cardiovascular: Denies abdominal bloating, abdominal edema or abdominal pain Respiratory/Chest Respiratory/Chest: Denies change in mental status, change in phlegm color, chest congestion or chest tightness Gastrointestinal Gastrointestinal: Denies belching, bloating, change in bowel habits, change in stool character, chewing difficulty, coffee ground emesis, constipation, cramping, diarrhea, dyspepsia, dysphagia, early satiety, excessive flatus, fecal incontinence, heartburn, hematemesis, hematochezia, hemorrhoids, loose stools, melena, nausea, odynophagia, rectal bleeding, tenesmus, vomiting or weight changes Genitourinary Genitourinary: Denies abdominal discomfort, burning urination or itching Musculoskeletal Musculoskeletal: Reports as per HPI; Denies muscle weakness or myalgias Integumentary Integumentary: Denies jaundice Neurologic Neurologic: Denies lack of coordination or weakness Psychiatric Psychiatric: Denies confusion, depression, memory loss, mood swings, paranoia or suicidal ideation Endocrine Endocrinology: Denies systems reviewed and no addt'l complaints, except as documented Hematologic/Lymphatic Hematologic/Lymphatic: Denies anemia, easy bleeding, easy bruising or lymphadenopathy Allergic/Immunologic Allergic/Immunologic: Denies systems reviewed and no addt'l complaints, except as documented Physical Exam Const alert, oriented x3, no apparent distress, healthy appearing and well nourished General Appearance: cooperative, comfortable, well kempt and well developed Orientation / Consciousness: awake and oriented to person HEENT Head and Scalp: normocephalic and atraumatic Face and Sinus: normal facial exam Mouth: oral and palatal mucosa normal Eyes General Eye: normal appearance of both eyes Neck full ROM Lymph Lymphatic: no lymphadenopathy noted Chest inspection of chest normal Resp normal respiratory effort and no use of accessory muscles Cardio regular rate and regular rhythm GI normal to inspection, nondistended, normoactive bowel sounds, soft to palpation, non-tender, non-distended and no masses Auscultation: normoactive bowel sounds Palpation: soft Percussion: normal to percussion Rectal Exam: visual inspection normal and normal sphincter tone no CVA tenderness Back/Spine no CVA tenderness and normal ROM Extremity normal to inspection Peripheral Pulses: Yes pulses 2+ throughout Skin no rashes or lesions noted General Skin Exam: no breakdown, elasticity normal and turgor normal Neuro oriented x3 Motor Exam: strength 5/5 throughout Psych mental status grossly normal Appearance: grossly normal Attitude: calm Activity / Motor Behavior: appropriate eye contact Speech: normal speech Thought Process: normal thought process Thought Content: normal thought content Attention / Concentration: attention grossly intact Memory / Cognition: memory grossly intact Insight: insight good Judgement: judgement good Assessment & Plan Assessment/Plan (1) Encounter for screening for malignant neoplasm of colon: PLAN: Patient and the patient's power of commercial real estate attorney were explained alternatives, risk, benefits including outstanding bleeding, infection, sepsis, perforation, need for emergent and . He will have an ASA of 2.
--- NOTE | 2023-03-25 10:54 | SUR.PREOP ---
Incontinent of liquid Brown stool. enema given to clear, aid at bedside. pt tolerated well.
--- NOTE | 2023-03-25 11:02 | SUR.PREOP ---
Endoscopy nurses notified that pt may not be cleaned out enough from prep, enema given. Pt unable to retain enema. They will discuss with Dr Enrique.
== END | disposition home or self-care (01) ==
LOC: EN 08:45
PROVIDERS: PCP Family Medicine Geriatric Medicine; Referring Provider Family Medicine Geriatric Medicine; Visit Provider Internal Medicine Gastroenterology
DX: Z01.818 Encounter for other preprocedural examination (principal)
CPT/HCPCS: J7120; J2405

== ENCOUNTER → 2023-07-14 | Outpatient (CLI) | payer MEDICARE, MEDICAID, SELFPAY ==
[2023-07-22 07:09] LABS: Angiotensin Convert Enzyme 27 U/L (14-82); Anti-Smooth Muscle ABS 4 Units (0-19); Ceruloplasmin 20.1 mg/dL (16.0-31.0); Copper, Serum or Plasma 92 ug/dL (69-132); Cytoplasmic Ab (C-ANCA) <1:20 titer (Neg:<1:20); Perinuclear Ab (P-ANCA) <1:20 titer (Neg:<1:20)
== END | disposition home or self-care (01) ==
LOC: LAB 09:08
PROVIDERS: PCP Family Medicine Geriatric Medicine; Referring Provider Internal Medicine Gastroenterology; Visit Provider Internal Medicine Gastroenterology
DX: E72.20 Disorder of urea cycle metabolism, unspecified (principal)
CPT/HCPCS: 36415; 82140; 82164; 82390; 82525; 83516; 86256

== ENCOUNTER → 2023-09-02 | Outpatient (CLI) | payer MEDICARE, MEDICAID, SELFPAY ==
[2023-09-02 12:23] LABS: Absolute Lymphocyte Count 1.66 X10^3/uL (0.83-4.51); Absolute Neutrophil Count 6.2 X10^3/uL (2.0-7.7); Basophil# 0.02 X10^3/uL; Basophil% 0.2 % (0-1); Eosinophil# 0.04 X10^3/uL; Eosinophils% 0.5 % (0-5); Hematocrit 43.6 % (40-54); Hemoglobin 14.6 g/dL (13.0-16.5); Lymphocyte # 1.66 X10^3/ul (0.83-4.51); Lymphocyte % 19.3 % (19-41); Mean Corp Hgb Conc 33.5 g/dL (32-36); Mean Corpuscular Hgb 31.3 pg (27.0-32.0); Mean Corpuscular Volume 93.6 fL (80-94); Mean Platelet Vol. 9.8 fl (6.2-12.0); Monocyte# 0.61 X10^3/uL; Monocyte% 7.1 % (0-10); NRBC Flagged by Analyzer 0 % (0-5); Neutrophil # 6.22 X10^3/uL (2.7-7.7); Neutrophil % 72.6 % (47-70); Platelet Count 209 K/mm3 (150-450); RBC Distribution Width CV 12.6 % (11.6-14.6); RBC Distribution Width SD 43.3 fl (35.1-43.9); Red Blood Count 4.66 M/mm3 (4.6-6.2); White Blood Count 8.6 K/mm3 (4.4-11.0)
[2023-09-02 12:47] LABS: ALB/GLOB Ratio 1.2 RATIO (0.9-2.4); AST(SGOT) 7 U/L (15-37); Alanine Aminotransfer ALT/SGPT 8 U/L (16-61); Alkaline Phosphatase 88 U/L (45-117); Anion Gap 3 (5-15); BUN 15 mg/dL (7-18); BUN/Creat Ratio 16.3 RATIO (10-20); Calcium,Total 9.5 mg/dL (8.5-10.1); Chloride 105 mmol/L (98-107); Cholesterol 106 mg/dL (200); Creatinine, Serum 0.92 mg/dL (0.70-1.30); EST Glomerular Filtration Rate 92 mL/min (>60); Est Glom Filt Rate - Afr Amer 112 mL/min (>60); Globulin 3.3 g/dL (2.2-4.2); Glucose 97 mg/dL (74-106); High Density Lipoprotein 49 mg/dL; Potassium 4.4 mmol/L (3.5-5.1); Protein, Total 7.3 g/dL (6.4-8.2); Sodium Level 141 mmol/L (136-145); Thyroid Stim Hormone (TSH) 1.96 uIU/mL (0.358-3.74); Triglycerides 63 mg/dL; Very Low Density Lipoprotein 13 mg/dL (5-40)
== END | disposition home or self-care (01) ==
LOC: POLAB3 10:54
PROVIDERS: PCP Family Medicine Geriatric Medicine; Visit Provider Family Medicine Geriatric Medicine
DX: I10 Essential (primary) hypertension (principal); E78.5 Hyperlipidemia, unspecified; M10.9 Gout, unspecified
CPT/HCPCS: 36415; 80053; 80061; 84443; 85025

== ENCOUNTER → 2024-03-01 | Outpatient (CLI) | payer MEDICARE, MEDICAID, SELFPAY ==
[2024-03-01 11:10] LABS: Absolute Lymphocyte Count 1.31 X10^3/uL (0.83-4.51); Absolute Neutrophil Count 6.1 X10^3/uL (2.0-7.7); Basophil# 0.02 X10^3/uL; Basophil% 0.2 % (0-1); Eosinophil# 0.03 X10^3/uL; Eosinophils% 0.4 % (0-5); Hematocrit 40.9 % (40-54); Hemoglobin 13.8 g/dL (13.0-16.5); Lymphocyte # 1.31 X10^3/ul (0.83-4.51); Lymphocyte % 16.3 % (19-41); Mean Corp Hgb Conc 33.7 g/dL (32-36); Mean Corpuscular Hgb 31.6 pg (27.0-32.0); Mean Corpuscular Volume 93.6 fL (80-94); Mean Platelet Vol. 9.8 fl (6.2-12.0); Monocyte# 0.57 X10^3/uL; Monocyte% 7.1 % (0-10); NRBC Flagged by Analyzer 0 % (0-5); Neutrophil # 6.07 X10^3/uL (2.7-7.7); Neutrophil % 75.8 % (47-70); Platelet Count 209 K/mm3 (150-450); RBC Distribution Width CV 12.4 % (11.6-14.6); RBC Distribution Width SD 42.6 fl (35.1-43.9); Red Blood Count 4.37 M/mm3 (4.6-6.2)
[2024-03-01 11:51] LABS: ALB/GLOB Ratio 1.2 RATIO (0.9-2.4); AST(SGOT) 13 U/L (15-37); Alanine Aminotransfer ALT/SGPT 8 U/L (16-61); Albumin, Serum 3.6 g/dL (3.2-5.0); Alkaline Phosphatase 89 U/L (45-117); Anion Gap 4 (5-15); BUN 11 mg/dL (7-18); BUN/Creat Ratio 13.3 RATIO (10-20); Chloride 105 mmol/L (98-107); Cholesterol 90 mg/dL (200); Creatinine, Serum 0.82 mg/dL (0.70-1.30); EST Glomerular Filtration Rate 105 mL/min (>60); Est Glom Filt Rate - Afr Amer 127 mL/min (>60); Globulin 3.1 g/dL (2.2-4.2); Glucose 138 mg/dL (74-106); High Density Lipoprotein 48 mg/dL; PSA,Total - Annual Screen 0.44 ng/mL (0.00-4.00); Potassium 4.1 mmol/L (3.5-5.1); Protein, Total 6.7 g/dL (6.4-8.2); Sodium Level 140 mmol/L (136-145); Thyroid Stim Hormone (TSH) 2.66 uIU/mL (0.358-3.74); Triglycerides 95 mg/dL; Uric Acid 3.6 mg/dL (3.5-7.2); Very Low Density Lipoprotein 19 mg/dL (5-40)
== END | disposition home or self-care (01) ==
LOC: LAB 09:53
PROVIDERS: PCP Family Medicine Geriatric Medicine; Referring Provider Family Medicine Geriatric Medicine; Visit Provider Family Medicine Geriatric Medicine
DX: I10 Essential (primary) hypertension (principal); E78.5 Hyperlipidemia, unspecified; M10.9 Gout, unspecified; Z12.5 Encounter for screening for malignant neoplasm of prostate
CPT/HCPCS: 36415; 80053; 80061; 84153; 84443; 84550; 85025; G0103

== ENCOUNTER → 2024-08-25 | Outpatient (CLI) | payer MEDICARE, MEDICAID, SELFPAY ==
[2024-08-25 10:38] LABS: Absolute Lymphocyte Count 1.68 X10^3/uL (0.83-4.51); Basophil# 0.03 X10^3/uL; Basophil% 0.4 % (0-1); Eosinophil# 0.04 X10^3/uL; Eosinophils% 0.5 % (0-5); Hematocrit 43.5 % (40-54); Hemoglobin 14.8 g/dL (13.0-16.5); Lymphocyte # 1.68 X10^3/ul (0.83-4.51); Lymphocyte % 22.6 % (19-41); Mean Corpuscular Hgb 31.4 pg (27.0-32.0); Mean Corpuscular Volume 92.2 fL (80-94); Mean Platelet Vol. 9.4 fl (6.2-12.0); Monocyte# 0.62 X10^3/uL; Monocyte% 8.3 % (0-10); NRBC Flagged by Analyzer 0 % (0-5); Neutrophil # 5.02 X10^3/uL (2.7-7.7); Neutrophil % 67.5 % (47-70); Platelet Count 228 K/mm3 (150-450); RBC Distribution Width CV 12.8 % (11.6-14.6); RBC Distribution Width SD 43.5 fl (35.1-43.9); Red Blood Count 4.72 M/mm3 (4.6-6.2); White Blood Count 7.4 K/mm3 (4.4-11.0)
[2024-08-25 11:04] LABS: Valproic Acid (Depakene) Level 33 ug/mL (50-100)
[2024-08-25 11:08] LABS: ALB/GLOB Ratio 1.2 RATIO (0.9-2.4); AST(SGOT) 14 U/L (15-37); Alanine Aminotransfer ALT/SGPT 11 U/L (16-61); Alkaline Phosphatase 110 U/L (45-117); Anion Gap 3 (5-15); BUN 12 mg/dL (7-18); BUN/Creat Ratio 13.8 RATIO (10-20); Calcium,Total 9.7 mg/dL (8.5-10.1); Chloride 102 mmol/L (98-107); Creatinine, Serum 0.87 mg/dL (0.70-1.30); EST Glomerular Filtration Rate 98 mL/min (>60); Est Glom Filt Rate - Afr Amer 118 mL/min (>60); Globulin 3.3 g/dL (2.2-4.2); Glucose 98 mg/dL (74-106); Potassium 4.2 mmol/L (3.5-5.1); Protein, Total 7.3 g/dL (6.4-8.2); Sodium Level 138 mmol/L (136-145)
[2024-08-25 11:13] LABS: Cholesterol 107 mg/dL (200); High Density Lipoprotein 51 mg/dL; Triglycerides 89 mg/dL; Uric Acid 3.8 mg/dL (3.5-7.2); Very Low Density Lipoprotein 18 mg/dL (5-40)
[2024-08-25 12:40] LABS: Hemoglobin A1c 5.2 % (3.8-5.6)
[2024-08-26 04:08] LABS: PROLACTIN 15.1 ng/mL (3.6-25.2)
== END | disposition home or self-care (01) ==
PROVIDERS: PCP Family Medicine Geriatric Medicine; Referring Provider Psychiatry & Neurology Psychiatry; Visit Provider Psychiatry & Neurology Psychiatry
DX: I10 Essential (primary) hypertension (principal); E78.5 Hyperlipidemia, unspecified; M10.9 Gout, unspecified; Z79.899 Other long term (current) drug therapy
CPT/HCPCS: 36415; 80053; 80061; 80164; 82140; 83036; 84146; 84443; 84550; 85025

== ENCOUNTER 2025-03-02 12:46 | Observation (INO) | payer MEDICARE, MEDICAID, SELFPAY ==
[2025-03-02 12:47] VITALS: BP 91/71; PULSE 104; RESP 28; TEMP 37.1; O2SAT 94
--- NOTE | 2025-03-02 13:42 | EKG12_ITS ---
Test Reason : Blood Pressure : */* mmHG Vent. Rate : 92 BPM Atrial Rate : 92 BPM P-R Int : 198 ms QRS Dur : 114 ms QT Int : 370 ms P-R-T Axes : 35 -9 14 degrees QTcB Int : 457 ms Normal sinus rhythm Incomplete right bundle branch block Minimal voltage criteria for LVH, may be normal variant ( R in aVL ) Borderline ECG Confirmed by TARUN JENNINGS, CHEN ([id number]), news video editor TREVOR BRUNNER ([id number]) on 03/06/2025 7:07:54 AM Referred By: Confirmed By: CHEN MCNEIL MD
--- NOTE | 2025-03-02 13:42 | EKG12_ITS ---
Test Reason : Blood Pressure : */* mmHG Vent. Rate : 92 BPM Atrial Rate : 92 BPM P-R Int : 198 ms QRS Dur : 114 ms QT Int : 370 ms P-R-T Axes : 35 -9 14 degrees QTcB Int : 457 ms Normal sinus rhythm Incomplete right bundle branch block Minimal voltage criteria for LVH, may be normal variant ( R in aVL ) Borderline ECG Confirmed by TARUN JENNINGS, CHEN ([id number]), proposal editor TREVOR BRUNNER ([id number]) on 03/06/2025 7:07:54 AM Referred By: Confirmed By: CHEN MCNEIL MD
--- NOTE | 2025-03-02 13:43 | EX.ED.DYSGE1 ---
HPI History of Present Illness Chief Complaint: Hypotension Informant: patient and other (longterm staff ) Narrative Narrative: Patient is a 50 year old male with history of PTSD, Parkinsons, schizophrenia, HTN, GERD, COPD presenting for shortness of breath and rib pain. Patient had a colonoscopy prep last night and is due to have a colonoscopy today. He had large bowel diarrhea as to be expected. He started to complain of increased abdominal distention, discomfort and pain on his ribs with associated shortness of breath. Animal was called. Per EMS patient was hypotensive when they arrived. Was transferred to the emergency room. Patient is at his mental baseline per staff member. [facility] Medical History Non-smoker On home oxygen therapy Wears glasses Anxiety Uses wheelchair Unsteady gait Gastric reflux BPH (benign prostatic hyperplasia) Gout Parkinsons disease Outbursts of explosive behavior Schizophrenia Mental and behavioral problem in adult PTSD (post-traumatic stress disorder) Moderate major depression Obsessive compulsive disorder GERD (gastroesophageal reflux disease) High cholesterol Hypertension Arthritis Home Medications ?Medication ?Instructions ?Recorded ?Last Taken ?Type atenolol 50 mg tablet 50 mg PO DAILY 01/31/19 03/25/23 History divalproex 500 mg tablet,delayed 500 mg PO QHS 01/31/19 Unknown History release quetiapine 400 mg tablet,extended 400 mg PO BID 01/31/19 03/25/23 History release 24 hr (Seroquel XR) tamsulosin 0.4 mg capsule 0.4 mg PO BID 01/31/19 Unknown History allopurinol 300 mg tablet 300 mg PO DAILY 11/28/22 Unknown History amantadine HCl 100 mg capsule 100 mg PO BID 11/28/22 Unknown History fluvoxamine 100 mg tablet 100 mg PO 0800 11/28/22 03/25/23 History fluvoxamine 50 mg tablet 50 mg PO QHS 11/28/22 Unknown History haloperidol 5 mg tablet 5 mg PO BID 11/28/22 03/25/23 History pravastatin 40 mg tablet 40 mg PO QHS 11/28/22 Unknown History acetaminophen 650 mg 1,300 mg PO Q12H PRN PAIN 03/20/23 Unknown History tablet,extended release calcium carbonate (Oyster Shell 500 mg PO DAILY 03/20/23 Unknown History Calcium 500) carbidopa ER 50 mg-levodopa 200 mg 1 tab PO TID TREMORS 03/20/23 03/25/23 History tablet,extended release bisacodyl 5 mg tablet,delayed 5 mg PO ONCE #4 tabs 12/26/24 Unknown Rx release polyethylene glycol 3350 17 238 g PO ONCE #238 grams 12/26/24 Unknown Rx gram/dose oral powder carbidopa 25 mg-levodopa 100 mg 3 tab PO 4X/DAY 02/28/25 Unknown History tablet lactulose 10 gram/15 mL oral 03/02/25 Unknown History solution (Enulose) multivitamin with folic acid 400 1 tab PO DAILY 03/02/25 Unknown History mcg tablet (Daily-Jennie (with folic acid)) Allergy/AdvReac Type Severity Reaction Status Date / Time No Known Allergies Allergy Verified 03/02/25 12:53 Surgical History No history of previous surgery Social History Smoking Status: Never smoker alcohol intake: never substance use type: does not use what type of physical activity do you participate in: none ROS ROS ED Review of Systems ROS Unobtainable: due to mental condition Constitutional Constitutional ED: Denies chills or fever(s) Cardiovascular Cardiovascular: Reports other Details: Reports rib pressure ; Denies chest pain Respiratory/Chest Respiratory/Chest: Reports dyspnea; Denies cough or sputum Gastrointestinal Gastrointestinal: Reports abdominal pain and diarrhea; Denies vomiting Musculoskeletal Musculoskeletal: Denies arthralgias or myalgias Neurologic Neurologic: Reports weakness Hematologic/Lymphatic Hematologic/Lymphatic: Denies easy bleeding or easy bruising EXAM Physical Exam Const Vital Signs: 03/02/25 12:47 03/02/25 13:29 03/02/25 15:03 Temperature 98.7 F Temperature Source Oral Pulse Rate 104 H 92 Respiratory Rate 28 H 20 H Respiratory Pattern Normal Blood Pressure 91/71 Blood Pressure Mean 77 Pulse Ox 94 95 Oxygen Delivery Method Room Air Positive well nourished and well developed General Appearance ED: well developed, NAD and pallor HEENT Reports dry mucous membranes Mouth ED: Yes dry mucous membranes Mouth: dry mucous membranes Eyes PERRL General Eye ED: Negative for pale conjunctiva or scleral icterus Neck supple and no JVD Chest Wall inspection of chest normal and palpation of chest normal Resp normal respiratory effort Auscultation: diminished lung sounds bilateral lower Cardio regular rate, regular rhythm and no murmurs GI GI Narrative: Distended, firm abdomen. Hypoactive bowel sounds present. No tenderness to palpation. No fluid wave appreciated. No guarding. Back/Spine no CVA tenderness Extremity normal to inspection General Extremety ED: Negative for edema or tenderness General Extremity: Negative for edema Neuro Sensorium / Orientation: alert Motor Exam: Negative for general weakness Psych mental status grossly normal Skin no rashes or lesions noted Skin Narrative: Mild pallor present General Skin Exam: pallor MDM MDM MDM Narrative Medical decision making narrative: Patient is evaluated for shortness of breath. He points to his lower ribs as where his discomfort is. He did a prep last night for colonoscopy has had profuse diarrhea. He was hypotensive per EMS upon arrival to the ER. Is given IV fluids. Differential includes hypovolemia, QUENTIN, abdominal compartment syndrome, colitis, hyperammonemia, pancreatitis, volvulus, intussusception and bowel obstruction. While ACS and cardiopulmonary process is on the differential I have a lower suspicion given the HPI and physical exam is consistent with a distended abdomen and profuse diarrhea. He has good distal pulses and low suspicion for aortic aneurysm/dissection. Patient has a profound leukocytosis of 19.2 which could be reactive versus infectious versus ischemic. Hemoglobin normal at 16.4 however this is elevated from his baseline and suspect associated hemoconcentration. Platelets are also mildly above his baseline. BMP shows elevated anion gap of 18 but a normal bicarb (however this is about 10 points below his baseline) and an QUENTIN with a creatinine of 2.1 (baseline is 0.8). His lactate is elevated at 3.3. Initial high-sensitivity troponin is elevated at 68. On repeat is at 46 and EKG does not show acute acute ischemic changes. Suspect this is more demand associate with decreased renal clearance. Lipase is mildly elevated at 80 which is nonspecific. Stool studies are pending as patient does continue have diarrhea in the emergency room. Chest x-ray reviewed by myself as well as radiology does not show any acute process but does show some cardiomegaly and limited inspiratory effort. CT of the abdomen pelvis shows mild distention of the colon but no other acute process. IV contrast was not utilized because of his QUENTIN. I did discuss with Dr. Friend as he was plan on scoping him today. Discussed the differential includes dehydration/reaction to the prep, bowel ischemia and less likely abdominal compartment syndrome as the aorta does not appear to be compressed. Patient is given 2 L IV fluid in the emergency room. Will be admitted for further electrolyte and renal monitoring and IV fluids. Case discussed with hospitalist, Dr. Denny. At this time I think his symptoms are associated with hypovolemia and diarrhea/bowel prep but I do not think there is acute bacterial process/sepsis and I do not think he requires antibiotics. Did obtain blood culture out of an abundance of caution. Lab Data Attestation: I reviewed the patient's lab results. Labs: Laboratory Results - last 24 hr 03/02/25 03/02/25 03/02/25 13:00 13:50 15:48 WBC 19.2 H RBC 5.11 Hgb 16.4 Hct 49.0 MCV 95.9 H MCH 32.1 H MCHC 33.5 RDW Std Deviation 46.5 H RDW Coeff of Rafa 13.1 Plt Count 273 MPV 9.6 Immature Gran % (Auto) 0.800 Neut % (Auto) 88.8 H Lymph % (Auto) 2.0 L Lee % (Auto) 8.2 Eos % (Auto) 0.0 Baso % (Auto) 0.2 Absolute Neuts (auto) 17.1 H Absolute Lymphs (auto) 0.39 L Nucleated RBC % 0 Sodium 144 Potassium 3.5 Chloride 104 Carbon Dioxide 22.8 Anion Gap 18 H BUN 12 Creatinine 2.10 H Estim Creat Clear Calc 46.18 L Est GFR (MDRD) Non-Af 37 L BUN/Creatinine Ratio 5.6 L Glucose 128 H Lactic Acid 3.3 H* Calcium 10.6 Total Bilirubin 0.31 AST 22 ALT 5 Alkaline Phosphatase 141 H Ammonia 54.4 Troponin T High Sens 68 H* Troponin T Hi Sens 2 Hr 46 H Total Protein 8.3 Albumin 5.1 H Globulin 3.2 Albumin/Globulin Ratio 1.6 Lipase 80 H Radiography Chest X-Ray - ED: 1 View, Read by ED Physician, Read by Radiologist, No Acute Disease and Cardiomegaly Diagnostic Testing: Clinical Impression(s) from Imaging Studies Chest X-Ray 03/02/25 14:30 IMPRESSION: Cardiomegaly. Limited inspiratory effort. Reading Location: [id number] Abdomen/Pelvis CT 03/02/25 14:34 IMPRESSION: Mild distention of the colon with fluid and air. No acute abnormality is seen. OVERALL FINAL ASSESSMENT: . LI-RADS is not meant to be used in patients <18 years or patients with cirrhosis due to congenital hepatic fibrosis or due to vascular disorders, because these patients have a lower chance of developing HCC. Reading Location: [id number] Rhythm Strip Rhythm Strip: Sinus Rhythm Rate: 92 Ectopy: None EKG Initial EKG: Attestation: I personally reviewed and interpreted this EKG as follows: Interpretation: Sinus Rhythm Comments: Normal sinus rhythm 192 bpm Normal axis Incomplete right bundle branch block Minimal voltage criteria for LVH No acute ischemic ST segment changes Management Discussion w/another healthcare provider: Hospitalist and Radio Station Manager Discharge Plan Triage Chief Complaint: Hypotension ED Provider: Kanika Carlson Dx/Rx/DC Orders Clinical Impression: QUENTIN (acute kidney injury), Elevated lactic acid level, Leukocytosis, Diarrhea, Elevated troponin Prescriptions: No Action atenolol 50 mg tablet 50 mg PO DAILY divalproex 500 mg tablet,delayed release (DR/EC) 500 mg PO QHS quetiapine [Seroquel XR] 400 mg tablet extended release 24 hr 400 mg PO BID tamsulosin 0.4 mg capsule 0.4 mg PO BID amantadine HCl 100 mg capsule 100 mg PO BID haloperidol 5 mg tablet 5 mg PO BID allopurinol 300 mg tablet 300 mg PO DAILY pravastatin 40 mg tablet 40 mg PO QHS fluvoxamine 50 mg tablet 50 mg PO QHS fluvoxamine 100 mg tablet 100 mg PO 0800 acetaminophen [Tylenol Arthritis] 650 mg Tablet Extended Release 1,300 mg PO Q12H PRN (Reason: PAIN) calcium carbonate [Oyster Shell Calcium 500] 500 mg calcium (1,250 mg) Tablet 500 mg PO DAILY carbidopa-levodopa 50-200 mg tablet extended release 1 tab PO TID carbidopa-levodopa 25-100 mg tablet 3 tab PO 4X/DAY lactulose [Enulose] 10 gram/15 mL solution Patient Comments: [NO ORIGINAL SIG] multivitamin with folic acid [Daily-Jennie (with folic acid)] 400 mcg tablet 1 tab PO DAILY bisacodyl 5 mg tablet,delayed release (DR/EC) 5 mg PO ONCE Qty: 4 0RF Rx Instructions: colonoscopy prep polyethylene glycol 3350 17 gram/dose powder 238 g PO ONCE Qty: 238 0RF Rx Instructions: Mix into 64oz clear liquid for colonoscopy prep Primary Care Provider: Emiliano Hu Chi Referrals: Emiliano Hu Chi, MD [Primary Care Provider] - Print Language: [place]
[2025-03-02 14:09] LABS: Absolute Lymphocyte Count 0.39 X10^3/uL (0.83-4.51); Absolute Neutrophil Count 17.1 X10^3/uL (2.0-7.7); Basophil# 0.03 X10^3/uL; Basophil% 0.2 % (0-1); Hemoglobin 16.4 g/dL (13.0-16.5); Lymphocyte # 0.39 X10^3/ul (0.83-4.51); Mean Corp Hgb Conc 33.5 g/dL (32-36); Mean Corpuscular Hgb 32.1 pg (27.0-32.0); Mean Corpuscular Volume 95.9 fL (80-94); Mean Platelet Vol. 9.6 fl (6.2-12.0); Monocyte# 1.57 X10^3/uL; Monocyte% 8.2 % (0-10); NRBC Flagged by Analyzer 0 % (0-5); Neutrophil # 17.07 X10^3/uL (2.7-7.7); Neutrophil % 88.8 % (47-70); POSITIVE DIFFERENTIAL YES; Platelet Count 273 K/mm3 (150-450); RBC Distribution Width CV 13.1 % (11.6-14.6); RBC Distribution Width SD 46.5 fl (35.1-43.9); Red Blood Count 5.11 M/mm3 (4.6-6.2); White Blood Count 19.2 K/mm3 (4.4-11.0)
[2025-03-02 14:23] LABS: Differential Indicated SCAN CRITERIA MET
[2025-03-02 14:27] LABS: Ammonia 54.4 umol/L (16-60)
[2025-03-02 14:28] LABS: ALB/GLOB Ratio 1.6 RATIO (0.9-2.4); AST(SGOT) 22 U/L (<=37); Alanine Aminotransfer ALT/SGPT 5 U/L (<=46); Albumin, Serum 5.1 g/dL (3.5-5.0); Alkaline Phosphatase 141 U/L (40-129); Anion Gap 18 (5-15); BUN 12 mg/dL (4-19); BUN/Creat Ratio 5.6 RATIO (10-20); Calcium,Total 10.6 mg/dL (7.6-11.0); Carbon Dioxide 22.8 mmol/L (21.0-32.0); Chloride 104 mmol/L (98-108); EST Glomerular Filtration Rate 37 (>60); Estimated Creatinine Clearance 46.18 ml/min (50-250); Globulin 3.2 g/dL (2.2-4.2); Glucose 128 mg/dL (70-99); Lipase 80 U/L (13-75); Potassium 3.5 mmol/L (3.3-5.1); Protein, Total 8.3 g/dL (5.9-8.4); Sodium Level 144 mmol/L (133-145); Total Bilirubin 0.31 mg/dL (0.00-1.30)
[2025-03-02 14:29] LABS: Troponin T High Sensitivity 68 ng/L (<=22)
--- NOTE | 2025-03-02 14:30 | RAD_ITS ---
PROCEDURE: CHEST 1 VIEW (PORTABLE) 03/02/2025 REASON FOR EXAM: SOB TECHNIQUE: Frontal view of the chest. COMPARISON: None FINDINGS: Hardware: EKG electrodes are seen. Heart: Heart size is moderately enlarged. Lungs: Limited inspiratory effort although no focal infiltrate is seen. Bones: The bones are unremarkable. Other: Gas is seen throughout the colon. RAD/Chest 1 View (Portable) IMPRESSION: Cardiomegaly. Limited inspiratory effort. Reading Location: [id number]
--- NOTE | 2025-03-02 14:30 | RAD_ITS ---
PROCEDURE: CHEST 1 VIEW (PORTABLE) 03/02/2025 REASON FOR EXAM: SOB TECHNIQUE: Frontal view of the chest. COMPARISON: None FINDINGS: Hardware: EKG electrodes are seen. Heart: Heart size is moderately enlarged. Lungs: Limited inspiratory effort although no focal infiltrate is seen. Bones: The bones are unremarkable. Other: Gas is seen throughout the colon. RAD/Chest 1 View (Portable) IMPRESSION: Cardiomegaly. Limited inspiratory effort. Reading Location: [id number]
--- NOTE | 2025-03-02 14:34 | CT_ITS ---
PROCEDURE: ABDOMEN/PELVIS WITHOUT CONT 03/02/2025 REASON FOR EXAM: ABD PAIN, DISTENSION, QUENTIN TECHNIQUE: Abdomen and pelvis CT without intravenous contrast. Noncontrast technique limits evaluation of the abdominal and pelvic viscera. Coronal and Sagittal reconstruction series were provided. One or more dose reduction techniques were used (e.g., Automated exposure control, adjustment of the mA and/or kV according to patient size, use of iterative reconstruction technique). PATIENT PREPARATION: Per protocol ORAL CONTRAST TYPE: None. COMPARISON: None FINDINGS: Lung bases: Mild dependent atelectasis calcified subcarinal lymph nodes. Liver: Normal size. No obvious mass. Gallbladder: Unremarkable Spleen: Scattered calcified granulomas. Pancreas: Diffuse fatty atrophy. Adrenals: Unremarkable Kidneys: No urolithiasis. No hydronephrosis. Bladder: Distended urinary bladder. Bowel: Mildly distended: Due to air and fluid. Appendix: The appendix is not identified. There is no inflammatory process identified in the right lower quadrant to suggest appendicitis. Lymph nodes: Unremarkable. Vasculature: Mild diffuse atherosclerotic calcifications are noted. Peritoneum / Retroperitoneum: Unremarkable Bones: Loss of the normal lumbar lordosis. CT/Abdomen/Pelvis without Cont IMPRESSION: Mild distention of the colon with fluid and air. No acute abnormality is seen. OVERALL FINAL ASSESSMENT: . LI-RADS is not meant to be used in patients <18 years or patients with cirrhosi s due to congenital hepatic fibrosis or due to vascular disorders, because these patients have a lower chance of developing HC C. Reading Location: [facility]
[2025-03-02] MEDS: 0.9% Normal Saline (1000mL) 1,000 ML 999 ML IV ×2 (15:00→17:25)
[2025-03-02 15:03] VITALS: PULSE 92; RESP 20; O2SAT 95
[2025-03-02 15:08] LABS: Lactic Acid 3.3 mmol/L (0.0-2.0)
--- NOTE | 2025-03-02 16:25 | HP.PCM.HOS_ITS ---
HPI - General General Date of Admission: 03/02/25 Date of Service: 03/02/25 Chief Complaint: Abdominal distention, discomfort, recent c-scope bowel prep. HPI Narrative The patient is a 50 y/o M w/ PMHx: Obesity, Anxiety and Depression/explosive behavior/schizophrenia/PTSD/OCD tendencies, GERD, Parkinson's disease with chronic unsteady gait, Gout, BPH with obstructive pathology, HTN, HLD who presents to the [facility] ED on 03/02/25 with history of dyspnea and discomfort to his ribs with history of recent colonoscopy prep the evening prior for planned colonoscopy today with significant loose stools but onset following mild abdominal distention and discomfort with associated mild dyspnea prompting EMS call who noted he had been hypotensive prompting ED evaluation. Some concern initially for patient's altered behavior as he is from a shelter with significant underlying psychiatric history however staff reports that this is his baseline. Workup in the ED included T98.7, heart rate 104, BP 91/71, respiratory rate 28, 94% on room air, CBC with WC 19.2, hemoglobin 16.4, 273 with left shift and lymphopenia, CMP with BUN/creatinine 12/2.10, GFR 37, glucose 128, lactic acid 3.3, hepatic profile with alk phos 141 otherwise not marked appearing, lipase 80, initial troponin 68-->46, chest x-ray with cardiomegaly with limited inspiratory effort with no acute cardiopulmonary findings, CT abdomen and pelvis without contrast with mild distention of the colon with fluid and air with no acute intra-abdominal finding, EKG with SR with LVH evidence without acute evidence of ischemia. Questionable Transient Bowel Ischemia Mag, Phos, procalc Cdiff, enteric, O+P, lactoferrin QUENTIN Elevated trop: serial, mag, flp, ASA PFSH Medical History Non-smoker On home oxygen therapy Wears glasses Anxiety Uses wheelchair Unsteady gait Gastric reflux BPH (benign prostatic hyperplasia) Gout Parkinsons disease Outbursts of explosive behavior Schizophrenia Mental and behavioral problem in adult PTSD (post-traumatic stress disorder) Moderate major depression Obsessive compulsive disorder GERD (gastroesophageal reflux disease) High cholesterol Hypertension Arthritis Home Medications ?Medication ?Instructions ?Recorded ?Last Taken ?Type atenolol 50 mg tablet 50 mg PO DAILY 01/31/19/0 05/10 History divalproex 500 mg tablet,delayed 500 mg PO QHS 9 Unknown History release quetiapine 400 mg tablet,extended 400 mg PO BID 03/25/23 History release 24 hr (Seroquel XR) tamsulosin 0.4 mg capsule 0.4 mg PO BID 01/31/19 Unkno wn History allopurinol 300 mg tablet 300 mg PO DAILY 11/28/22 Unk nown History amantadine HCl 100 mg capsule 100 mg PO BID 11/28/22 U nknown History fluvoxamine 100 mg tablet 100 mg PO 0800 11/28/22/05/10 History fluvoxamine 50 mg tablet 50 mg PO QHS 11/28/22 Unknow n History haloperidol 5 mg tablet 5 mg PO BID 11/28/22 3 History pravastatin 40 mg tablet 40 mg PO QHS 11/28/22 Unknow n History acetaminophen 650 mg 1,300 mg PO Q12H PRN PAIN Unknown History tablet,extended release calcium carbonate (Oyster Shell 500 mg PO DAILY Unknown History Calcium 500) carbidopa ER 50 mg-levodopa 200 mg 1 tab PO TID TREMOR S 03/20/23 03/25/23 History tablet,extended release bisacodyl 5 mg tablet,delayed 5 mg PO ONCE #4 tabs 08/12 Unknown Rx release polyethylene glycol 3350 17 238 g PO ONCE #238 grams 0 12/26/24 Unknown Rx gram/dose oral powder carbidopa 25 mg-levodopa 100 mg 3 tab PO 4X/DAY Unknown History tablet lactulose 10 gram/15 mL oral 03/02/25 Unknown History solution (Enulose) multivitamin with folic acid 400 1 tab PO DAILY Unknown History mcg tablet (Daily-Jennie (with folic acid)) Allergy/AdvReac Type Severity Reaction Status Date / Time No Known Allergies Allergy Verified 03/02/25 12:53 Surgical History No history of previous surgery Social History Smoking Status: Never smoker alcohol intake: never substance use type: does not use what type of physical activity do you participate in: none Vital Signs Vital Signs Vital Signs: 03/02/25 12:47 03/02/25 13:29 03/02/25 15:03 Temperature 98.7 F Temperature Source Oral Pulse Rate 104 H 92 Respiratory Rate 28 H 20 H Respiratory Pattern Normal Blood Pressure 91/71 Blood Pressure Mean 77 Pulse Ox 94 95 Oxygen Delivery Method Room Air Weight Weight: 203 lb 7.787 oz Body Mass Index (BMI) 30.0 Results Lab / Micro Data 03/02/25 13:00 03/02/25 13:00 Labs: Laboratory Results - last 24 hr 03/02/25 13:00: WBC 19.2 H, RBC 5.11, Hgb 16.4, Hct 49.0, MCV 95.9 H, MCH 32.1 H , MCHC 33.5, RDW Std Deviation 46.5 H, RDW Coeff of Rafa 13.1, Plt Count 273, MPV 9.6, Immature Gran % (Auto) 0.800, Neut % (Auto) 88.8 H, Lymph % (Auto) 2.0 L, [place] % (Auto) 8.2, Eos % (Auto) 0.0, Baso % (Auto) 0.2, Absolute Neuts (auto) 17.1 H, Absolute Lymphs (auto) 0.39 L, Nucleated RBC % 0, Sodium 144, Potassium 3.5, Chloride 104, Carbon Dioxide 22.8, Anion Gap 18 H, BUN 12, Creatinine 2.10 H, Estim Creat Clear Calc 46.18 L, Est GFR (MDRD) Non-Af 37 L, BUN/Creatinine Ratio 5.6 L, Glucose 128 H, Calcium 10.6, Total Bilirubin 0.31, AST 22, ALT 5, A lkaline Phosphatase 141 H, Troponin T High Sens 68 H*, Total Protein 8.3, A lbumin 5.1 H, Globulin 3.2, Albumin/Globulin Ratio 1.6, Lipase 80 H 03/02/25 13:50: Lactic Acid 3.3 H*, Ammonia 54.4 Imaging Radiology Impression Chest X-Ray 03/02/25 14:30 IMPRESSION: Cardiomegaly. Limited inspiratory effort. Reading Location: [facility] Abdomen/Pelvis CT 03/02/25 14:34 IMPRESSION: Mild distention of the colon with fluid and air. No acute abnormality is seen. OVERALL FINAL ASSESSMENT: . LI-RADS is not meant to be used in patients <18 years or patients with cirrhosis due to congenital hepatic fibrosis or due to vascular disorders, because these patients have a lower chance of developing HCC. Reading Location: [facility]
--- NOTE | 2025-03-02 16:25 | PCM.HP.STD ---
HPI - General General Date of Admission: 03/02/25 Date of Service: 03/02/25 Chief Complaint: Abdominal distention, discomfort, recent c-scope bowel prep. HPI Narrative The patient is a 50 y/o M w/ PMHx: Obesity, Anxiety and Depression/explosive behavior/schizophrenia/PTSD/OCD tendencies, GERD, Parkinson's disease with chronic unsteady gait, Gout, BPH with obstructive pathology, HTN, HLD who presents to the [facility] ED on 03/02/25 with history of dyspnea and discomfort to his ribs with history of recent colonoscopy prep the evening prior for planned colonoscopy today with significant loose stools but onset following mild abdominal distention and discomfort with associated mild dyspnea prompting EMS call who noted he had been hypotensive prompting ED evaluation. Some concern initially for patient's altered behavior as he is from a jail with significant underlying psychiatric history however staff reports that this is his baseline. Workup in the ED included T98.7, heart rate 104, BP 91/71, respiratory rate 28, 94% on room air, CBC with WC 19.2, hemoglobin 16.4, 273 with left shift and lymphopenia, CMP with BUN/creatinine 12/2.10, GFR 37, glucose 128, lactic acid 3.3, hepatic profile with alk phos 141 otherwise not marked appearing, lipase 80, initial troponin 68-->46, chest x-ray with cardiomegaly with limited inspiratory effort with no acute cardiopulmonary findings, CT abdomen and pelvis without contrast with mild distention of the colon with fluid and air with no acute intra-abdominal finding, EKG with SR with LVH evidence without acute evidence of ischemia. In the ED given severity of diarrhea bowel fecal management system was placed. Pending ova and parasite, C. difficile, lactoferrin, enteric pathogen per ED physician. [facility] Medical History Non-smoker On home oxygen therapy Wears glasses Anxiety Uses wheelchair Unsteady gait Gastric reflux BPH (benign prostatic hyperplasia) Gout Parkinsons disease Outbursts of explosive behavior Schizophrenia Mental and behavioral problem in adult PTSD (post-traumatic stress disorder) Moderate major depression Obsessive compulsive disorder GERD (gastroesophageal reflux disease) High cholesterol Hypertension Arthritis Home Medications ?Medication ?Instructions ?Recorded ?Last Taken ?Type atenolol 50 mg tablet 50 mg PO DAILY 01/31/19 03/25/23 History divalproex 500 mg tablet,delayed 500 mg PO QHS 01/31/19 Unknown History release quetiapine 400 mg tablet,extended 400 mg PO BID 01/31/19 03/25/23 History release 24 hr (Seroquel XR) tamsulosin 0.4 mg capsule 0.4 mg PO BID 01/31/19 Unknown History allopurinol 300 mg tablet 300 mg PO DAILY 11/28/22 Unknown History amantadine HCl 100 mg capsule 100 mg PO BID 11/28/22 Unknown History fluvoxamine 100 mg tablet 100 mg PO 0800 11/28/22 03/25/23 History fluvoxamine 50 mg tablet 50 mg PO QHS 11/28/22 Unknown History haloperidol 5 mg tablet 5 mg PO BID 11/28/22 03/25/23 History pravastatin 40 mg tablet 40 mg PO QHS 11/28/22 Unknown History acetaminophen 650 mg 1,300 mg PO Q12H PRN PAIN 03/20/23 Unknown History tablet,extended release calcium carbonate (Oyster Shell 500 mg PO DAILY 03/20/23 Unknown History Calcium 500) carbidopa ER 50 mg-levodopa 200 mg 1 tab PO TID TREMORS 03/20/23 03/25/23 History tablet,extended release bisacodyl 5 mg tablet,delayed 5 mg PO ONCE #4 tabs 12/26/24 Unknown Rx release polyethylene glycol 3350 17 238 g PO ONCE #238 grams 12/26/24 Unknown Rx gram/dose oral powder carbidopa 25 mg-levodopa 100 mg 3 tab PO 4X/DAY 02/28/25 Unknown History tablet lactulose 10 gram/15 mL oral 03/02/25 Unknown History solution (Enulose) multivitamin with folic acid 400 1 tab PO DAILY 03/02/25 Unknown History mcg tablet (Daily-Jennie (with folic acid)) Allergy/AdvReac Type Severity Reaction Status Date / Time No Known Allergies Allergy Verified 03/02/25 12:53 Family History Father Lung cancer COPD (chronic obstructive pulmonary disease) Mother No problems noted. Surgical History No history of previous surgery Social History household members: none housing: other details: [employer]. Smoking Status: Never smoker alcohol intake: never substance use type: does not use what type of physical activity do you participate in: none ROS ROS Narrative Admission Review of Systems: CONSTITUTIONAL: No weight loss, fever, chills, + weakness or fatigue. HEENT: Eyes: No visual loss, blurred vision, double vision or yellow sclerae. Ears, Nose, Throat: No hearing loss, sneezing, congestion, runny nose or sore throat. SKIN: No rash or itching, lesions, wounds. CARDIOVASCULAR: No chest pain, chest pressure or chest discomfort, palpitations, edema, orthopnea, syncopal events. RESPIRATORY: + Dyspnea. No cough or sputum, wheezing, hemoptysis. GASTROINTESTINAL: + Abdominal distention, dyspepsia, severe diffuse diarrhea. No anorexia, nausea, vomiting, melena, BRBPR. GENITOURINARY: No dysuria, frequency, urgency or retention. NEUROLOGICAL: + Underlying Parkinson's disease with significant gait disturbance. No headache, dizziness, syncope, paralysis, ataxia, numbness or tingling in the extremities, focal weakness, change in bowel or bladder control, seizure. MUSCULOSKELETAL: No muscle, back pain, joint pain or stiffness. HEMATOLOGIC: No anemia, bleeding or bruising. LYMPHATICS: No enlarged nodes. No history of splenectomy. PSYCHIATRIC: + Hx of Anxiety and Depression/explosive behavior/schizophrenia/PTSD/OCD tendencies ENDOCRINOLOGIC: No reports of sweating, cold or heat intolerance. No polyuria or polydipsia. ALLERGIES: No history of asthma, hives, eczema or rhinitis. Vital Signs Vital Signs Vital Signs: 03/02/25 12:47 03/02/25 13:29 03/02/25 15:03 Temperature 98.7 F Temperature Source Oral Pulse Rate 104 H 92 Respiratory Rate 28 H 20 H Respiratory Pattern Normal Blood Pressure 91/71 Blood Pressure Mean 77 Pulse Ox 94 95 Oxygen Delivery Method Room Air Weight Weight: 203 lb 7.787 oz Body Mass Index (BMI) 30.0 Physical Exam Narrative Physical Examination: General: Awake, alert, oriented to self, place and recent events, does have underlying significant psychiatric history and lives in a jail, cooperative, seated upright in ED bed, fatigued appearing. Skin: Normal color, normal turgor, no icterus, no cyanosis except occasional stage ecchymosis, abrasion. HEENT: AT/NC, EOMI, PERRLA, dry MM, no carotid bruits or JVD noted. Lungs: Mildly diminished, greater bases, appropriate effort, no rales, ronchi or wheezing. Heart: Mildly tachycardic with regular rhythm; no gallop, rub audible. Abdomen: Soft, no marked discomfort with palpation nor any rebound or guarding, mildly distended and tympanitic, mildly hyperactive BS, no appreciated HSM. Extremities: No cyanosis, clubbing, or edema. Neurological: Patient awake, alert, oriented as noted, cognitive function suspect baseline intact however he does have significant underlying psychiatric history and Parkinson's disease of note but suspect this is his baseline; pupils equally reactive to light and accommodation, cranial nerves gross normal, moving all 4 extremities, no obvious focal deficits, strength moderately to severely globally decreased. Psychiatric: Affect appears flat, no acute evidence of depressive or anxiety feelings but does have underlying notable psychiatric history as noted. Results Lab / Micro Data 03/02/25 13:00 03/02/25 13:00 Labs: Laboratory Results - last 24 hr 03/02/25 13:00: WBC 19.2 H, RBC 5.11, Hgb 16.4, Hct 49.0, MCV 95.9 H, MCH 32.1 H, MCHC 33.5, RDW Std Deviation 46.5 H, RDW Coeff of Rafa 13.1, Plt Count 273, MPV 9.6, Immature Gran % (Auto) 0.800, Neut % (Auto) 88.8 H, Lymph % (Auto) 2.0 L, [place] % (Auto) 8.2, Eos % (Auto) 0.0, Baso % (Auto) 0.2, Absolute Neuts (auto) 17.1 H, Absolute Lymphs (auto) 0.39 L, Nucleated RBC % 0, Sodium 144, Potassium 3.5, Chloride 104, Carbon Dioxide 22.8, Anion Gap 18 H, BUN 12, Creatinine 2.10 H, Estim Creat Clear Calc 46.18 L, Est GFR (MDRD) Non-Af 37 L, BUN/Creatinine Ratio 5.6 L, Glucose 128 H, Calcium 10.6, Total Bilirubin 0.31, AST 22, ALT 5, Alkaline Phosphatase 141 H, Troponin T High Sens 68 H*, Total Protein 8.3, Albumin 5.1 H, Globulin 3.2, Albumin/Globulin Ratio 1.6, Lipase 80 H 03/02/25 13:50: Lactic Acid 3.3 H*, Ammonia 54.4 Imaging Radiology Impression Chest X-Ray 03/02/25 14:30 IMPRESSION: Cardiomegaly. Limited inspiratory effort. Reading Location: [id number] Abdomen/Pelvis CT 03/02/25 14:34 IMPRESSION: Mild distention of the colon with fluid and air. No acute abnormality is seen. OVERALL FINAL ASSESSMENT: . LI-RADS is not meant to be used in patients <18 years or patients with cirrhosis due to congenital hepatic fibrosis or due to vascular disorders, because these patients have a lower chance of developing HCC. Reading Location: [facility] Assessment & Plan Assessment/Plan (1) Diarrhea: (2) Elevated lactic acid level: (3) QUENTIN (acute kidney injury): (4) Elevated troponin: PLAN: Plan The patient is a 50 y/o M w/ PMHx: Obesity, Anxiety and Depression/explosive behavior/schizophrenia/PTSD/OCD tendencies, GERD, Parkinson's disease with chronic unsteady gait, Gout, BPH with obstructive pathology, HTN, HLD who presents to the [facility] ED on 03/02/25 with history of dyspnea and discomfort to his ribs with history of recent colonoscopy prep the evening prior for planned colonoscopy today with significant loose stools but onset following mild abdominal distention and discomfort with associated mild dyspnea prompting EMS call who noted he had been hypotensive prompting ED evaluation. #1. Abdominal distention, bloating, significant diarrhea with recent bowel prep with significant leukocytosis, acute kidney injury, mild lactic acidosis suspected secondary to severity of dehydration, certainly possibility of transient ischemia with hypotension to the bowel but lower suspicion: Will admit to PCU, maintain on aggressive hydration, continue fecal management system, pending C. difficile, enteric pathogen, ova and parasite as well as lactoferrin per ED physician, given no current pain will allow a normal diet, will maintain on IV PPI until sure oral intake is able to be appropriately taken, once these stool studies are obtained if they are unremarkable will initiate loperamide regimen, maintain on fall precautions, procalcitonin requested to be cautious although again less suspicious for infectious etiology. Given severity of diarrhea mag and Phos levels requested. #2. Acute kidney injury: Secondary to GI losses as no. Admission BUN/Cr 12/2.10, GFR 30, prior baseline creatinine noted to be 0.8-0.9. Will hydrate, hold nephrotoxic medications and repeat chemistry in AM. If no improvement would plan FeNa assessment. #3. Indeterminate cardiac enzyme of unclear significance: EKG with sinus rhythm with no acute evidence of ischemia, initial troponin 68 with repeat delta 46, possibly demand related given hypotension with significant GI losses as noted, will maintain on telemetry monitoring, continue to cycle cardiac enzymes, magnesium level requested, FLP in AM. Lower suspicion for actual cardiac etiology. #4. Anxiety and Depression/explosive behavior/schizophrenia/PTSD/OCD tendencies: Will cautiously continue patient psychiatric regimen however if renal functions worsens likely will need to hold several of these agents. #5. Parkinson's disease with chronic unsteady gait: Will continue patient home amantadine, Sinemet home regimen. Complicates presentation, maintain on fall precautions, therapies consulted. #6. Gout: Will continue patient home allopurinol regimen. #7 hyperlipidemia: Will continue patient on statin therapy. #8. BPH with obstructive pathology: Will continue patient home Flomax regimen. #9. Obesity: Weight loss and lifestyle changes encouraged. #10. GERD: Will temporally main on IV PPI until assure oral intake appropriate. #11. DVT prophylaxis: Cautiously utilize heparin. Charges/Coding Visit Charges Inpatient E&M: 82165 Init Hosp L3
[2025-03-02 16:34] LABS: Troponin T High Sens 2 HR 46 ng/L (<=22)
[2025-03-02 17:15] VITALS: BP 145/100; PULSE 101; RESP 17; TEMP 36.6; O2SAT 100
[2025-03-02 17:18] VITALS: BP 145/100; PULSE 101; RESP 17; TEMP 36.6; O2SAT 100
[2025-03-02 17:55] LABS: Reflex Lactate? Y
[2025-03-02 18:21] VITALS: BMI 28.2
[2025-03-02 18:22] LABS: Platelet Estimate ADEQUATE (ADEQ)
[2025-03-02 18:23] VITALS: BP 159/103; PULSE 104; RESP 18; TEMP 37; O2SAT 95
[2025-03-02 18:29] VITALS: BMI 28.1
[2025-03-02 18:37] LABS: Phosphorus 3.1 mg/dL (2.7-4.5)
[2025-03-02 18:52] LABS: Troponin T High Sens 4 HR 38 ng/L (<=22)
[2025-03-02 19:27] LABS: Lactic Acid 1.9 mmol/L (0.0-2.0)
[2025-03-02] MEDS: 0.9% Normal Saline (1000mL) 1,000 ML 100 ML IV (19:30)
[2025-03-02] MEDS: Carbidopa/Levodopa 25/100 Tablet PO ×2 (20:44→22:56)
[2025-03-02 21:02] VITALS: BP 142/67; PULSE 91; RESP 16; TEMP 36.6; O2SAT 94
[2025-03-02] MEDS: Acetaminophen 325 MG Tablet 650 MG PO (21:11)
[2025-03-02] MEDS: QUEtiapine 100 MG Tablet 400 MG PO (22:55)
[2025-03-02] MEDS: Divalproex Sodium 250 MG Tablet 500 MG PO (22:55)
[2025-03-02] MEDS: CARBIDOPA/LEVODOPA CR 50/200 Tablet PO (22:56)
[2025-03-02] MEDS: Tamsulosin HCl 0.4 MG Capsule PO (22:56)
[2025-03-02] MEDS: fluvoxaMINE Maleate 50 MG Tablet PO (22:56)
[2025-03-02] MEDS: Pantoprazole Sodium 40 MG in 0.9% Normal Saline (100mL MB+) 100 ML 330 MG IV (22:56)
[2025-03-02] MEDS: Pravastatin 40 MG Tablet PO (22:56)
[2025-03-02] MEDS: Amantadine 100 MG Capsule PO (22:56)
[2025-03-02] MEDS: Heparin Injection (Vial) 5,000 UNIT/ML VIAL 5000 UNIT SC (22:57)
[2025-03-02] MEDS: Haloperidol 5 MG Tablet PO (22:57)
[2025-03-03 04:00] VITALS: BP 128/89; PULSE 90; RESP 18; TEMP 37.2; O2SAT 95
[2025-03-03 04:48] VITALS: BMI 28.6
[2025-03-03] MEDS: CARBIDOPA/LEVODOPA CR 50/200 Tablet PO ×3 (05:13→21:55)
[2025-03-03 06:25] LABS: Absolute Lymphocyte Count 2.24 X10^3/uL (0.83-4.51); Absolute Neutrophil Count 9.6 X10^3/uL (2.0-7.7); Basophil# 0.03 X10^3/uL; Basophil% 0.2 % (0-1); Eosinophil# 0.05 X10^3/uL; Eosinophils% 0.4 % (0-5); Hematocrit 37.7 % (40-54); Lymphocyte # 2.24 X10^3/ul (0.83-4.51); Lymphocyte % 17.4 % (19-41); Mean Corp Hgb Conc 34.5 g/dL (32-36); Mean Corpuscular Hgb 32.1 pg (27.0-32.0); Mean Corpuscular Volume 93.1 fL (80-94); Mean Platelet Vol. 9.2 fl (6.2-12.0); Monocyte# 0.89 X10^3/uL; Monocyte% 6.9 % (0-10); NRBC Flagged by Analyzer 0 % (0-5); Neutrophil # 9.59 X10^3/uL (2.7-7.7); Neutrophil % 74.6 % (47-70); Platelet Count 190 K/mm3 (150-450); RBC Distribution Width CV 13.1 % (11.6-14.6); RBC Distribution Width SD 44.4 fl (35.1-43.9); Red Blood Count 4.05 M/mm3 (4.6-6.2); White Blood Count 12.9 K/mm3 (4.4-11.0)
[2025-03-03 07:25] LABS: Cholesterol 82 mg/dL (<=200); High Density Lipoprotein 36 mg/dL; Low Density Lipoprotein Calc. 28 mg/dL; Triglycerides 85 mg/dL; Very Low Density Lipoprotein 17 mg/dL (5-40); cholesterol:hdl ratio screen 2.25
[2025-03-03 07:31] LABS: ALB/GLOB Ratio 1.7 RATIO (0.9-2.4); AST(SGOT) 77 U/L (<=37); Alanine Aminotransfer ALT/SGPT 7 U/L (<=46); Albumin, Serum 3.6 g/dL (3.5-5.0); Alkaline Phosphatase 104 U/L (40-129); Anion Gap 12 (5-15); BUN 11 mg/dL (4-19); BUN/Creat Ratio 11.9 RATIO (10-20); Calcium,Total 8.7 mg/dL (7.6-11.0); Carbon Dioxide 20.2 mmol/L (21.0-32.0); Chloride 105 mmol/L (98-108); Creatinine, Serum 0.91 mg/dL (0.70-1.20); EST Glomerular Filtration Rate 101 (>60); Globulin 2.2 g/dL (2.2-4.2); Glucose 123 mg/dL (70-99); Potassium 3.5 mmol/L (3.3-5.1); Protein, Total 5.8 g/dL (5.9-8.4); Sodium Level 137 mmol/L (133-145)
[2025-03-03 07:35] VITALS: O2SAT 95
[2025-03-03 10:13] VITALS: BP 164/104; PULSE 104; RESP 18; TEMP 36.7; O2SAT 97
[2025-03-03] MEDS: Heparin Injection (Vial) 5,000 UNIT/ML VIAL 5000 UNIT SC ×2 (10:16→21:56)
[2025-03-03] MEDS: Allopurinol 300 MG Tablet PO (10:16)
[2025-03-03] MEDS: Amantadine 100 MG Capsule PO (10:16)
[2025-03-03] MEDS: QUEtiapine 100 MG Tablet 400 MG PO ×2 (10:16→21:56)
[2025-03-03] MEDS: fluvoxaMINE Maleate 50 MG Tablet 100 MG PO (10:16)
[2025-03-03] MEDS: Carbidopa/Levodopa 25/100 Tablet PO ×4 (10:16→21:55)
[2025-03-03] MEDS: Haloperidol 5 MG Tablet PO ×2 (10:16→21:55)
[2025-03-03] MEDS: Tamsulosin HCl 0.4 MG Capsule PO ×2 (10:16→21:55)
[2025-03-03] MEDS: Pantoprazole Sodium 40 MG in 0.9% Normal Saline (100mL MB+) 100 ML 330 MG IV ×2 (10:26→21:56)
--- NOTE | 2025-03-03 13:09 | PCM.PROGNOTE ---
Subjective Subjective Patient seen and examined. He was alert and able to communicate. He had no abdominal pain. He denied any fever, chills, nausea, vomiting and the abdominal pain had resolved. Review of systems is otherwise negative. Objective Data Objective Data Vital Signs: Vital Signs Temp Pulse Resp BP Pulse Ox O2 Del Method 98.1 F 104 H 18 164/104 H 97 Room Air 03/03/25 10:13 03/03/25 10:13 03/03/25 10:13 03/03/25 10:13 03/03/25 10:13 03/03/25 10:13 Oxygen Delivery Method Room Air Weight: 193 lb 12.581 oz Body Mass Index (BMI) 28.6 Intake & Output: Intake and Output for Last 24 Hours 03/01/25 03/02/25 03/03/25 23:59 23:59 23:59 Intake Total 2260 / 2500 1590 / 1590 Output Total 1400 / 1400 Balance 2260 / 2050 190 / 190 Lab / Micro Data 03/03/25 05:58 03/03/25 05:58 Labs: Laboratory Results - last 24 hr 03/02/25 13:00: WBC 19.2 H, RBC 5.11, Hgb 16.4, Hct 49.0, MCV 95.9 H, MCH 32.1 H, MCHC 33.5, RDW Std Deviation 46.5 H, RDW Coeff of Rafa 13.1, Plt Count 273, MPV 9.6, Immature Gran % (Auto) 0.800, Neut % (Auto) 88.8 H, Lymph % (Auto) 2.0 L, [place] % (Auto) 8.2, Eos % (Auto) 0.0, Baso % (Auto) 0.2, Absolute Neuts (auto) 17.1 H, Absolute Lymphs (auto) 0.39 L, Nucleated RBC % 0, Platelet Estimate ADEQUATE, Sodium 144, Potassium 3.5, Chloride 104, Carbon Dioxide 22.8, Anion Gap 18 H, BUN 12, Creatinine 2.10 H, Estim Creat Clear Calc 46.18 L, Est GFR (MDRD) Non-Af 37 L, BUN/Creatinine Ratio 5.6 L, Glucose 128 H, Calcium 10.6, Total Bilirubin 0.31, AST 22, ALT 5, Alkaline Phosphatase 141 H, Troponin T High Sens 68 H*, Total Protein 8.3, Albumin 5.1 H, Globulin 3.2, Albumin/Globulin Ratio 1.6, Lipase 80 H 03/02/25 13:50: Lactic Acid 3.3 H*, Ammonia 54.4, Procalcitonin 0.10 03/02/25 15:48: Troponin T Hi Sens 2 Hr 46 H 03/02/25 18:10: Lactic Acid 1.9, Phosphorus 3.1, Magnesium 2.0, Troponin T Hi Sens 4Hr 38 H 03/03/25 05:58: WBC 12.9 H, RBC 4.05 L, Hgb 13.0, Hct 37.7 L, MCV 93.1, MCH 32.1 H, MCHC 34.5, RDW Std Deviation 44.4 H, RDW Coeff of Rafa 13.1, Plt Count 190, MPV 9.2, Immature Gran % (Auto) 0.500, Neut % (Auto) 74.6 H, Lymph % (Auto) 17.4 L, [place] % (Auto) 6.9, Eos % (Auto) 0.4, Baso % (Auto) 0.2, Absolute Neuts (auto) 9.6 H, Absolute Lymphs (auto) 2.24, Nucleated RBC % 0, Sodium 137, Potassium 3.5, Chloride 105, Carbon Dioxide 20.2 L, Anion Gap 12, BUN 11, Creatinine 0.91, Estim Creat Clear Calc 104.20, Est GFR (MDRD) Non-Af 101, BUN/Creatinine Ratio 11.9, Glucose 123 H, Calcium 8.7, Total Bilirubin 0.40, AST 77 H, ALT 7, Alkaline Phosphatase 104, Total Protein 5.8 L, Albumin 3.6, Globulin 2.2, Albumin/Globulin Ratio 1.7, Triglycerides 85, Cholesterol 82, LDL Cholesterol, Calc 28, VLDL Cholesterol 17, HDL Cholesterol 36 L, Cholesterol/HDL Ratio 2.25 Micro: Microbiology 03/02/25 01:05 Stool Stool Lactoferrin - Final 03/02/25 01:05 Stool Enteric Bacteriology - Final 03/02/25 01:05 Stool Clostridioides difficile (PCR) - Final Radiography Diagnostic Testing: Radiology Impression Chest X-Ray 03/02/25 14:30 IMPRESSION: Cardiomegaly. Limited inspiratory effort. Reading Location: [facility] Abdomen/Pelvis CT 03/02/25 14:34 IMPRESSION: Mild distention of the colon with fluid and air. No acute abnormality is seen. OVERALL FINAL ASSESSMENT: . LI-RADS is not meant to be used in patients <18 years or patients with cirrhosis due to congenital hepatic fibrosis or due to vascular disorders, because these patients have a lower chance of developing HCC. Reading Location: [facility] Rhythm Strip Rhythm Strip: Sinus Rhythm Rate: 92 Ectopy: None Physical Exam Const alert and no apparent distress Constitutional Narrative: alert, has some underlying MRDD General Appearance: cooperative HEENT normocephalic and head/scalp atraumatic HEENT Narrative: dry oral mucosa Eyes PERRL and EOMs intact bilaterally Neck no lymphadenopathy and supple Lymph Lymphatic: no lymphadenopathy noted Resp normal respiratory effort, normal air movement and clear to auscultation bilaterally Cardio regular rate, regular rhythm, S1 normal heart sound, S2 normal heart sound and no murmurs GI normal to inspection, nondistended, normoactive bowel sounds, soft to palpation, non-tender and non-distended Extremity normal capillary refill, no clubbing, cyanosis or edema and no calf tenderness General Extremity: no tenderness to palpation of joints or extremities Skin General Skin Exam: no breakdown Neuro CN's II-XII intact bilaterally, no focal motor deficits and no sensory deficits noted Motor Exam: strength 5/5 throughout and general weakness Psych cooperative Psych Narrative: underlying MRDD Mood & Affect: flat affect Assessment & Plan Assessment/Plan (1) Elevated troponin: (2) Diarrhea: (3) Leukocytosis: (4) Elevated lactic acid level: PLAN: Plan #Diarrhea this was in the setting of bowel prep for scheduled colonoscopy diarrhea has now resolved. C diff, enteric pathogens negative encourage oral hydration. Colonoscopy was due to be done yesterday, but this was not done because of the diarrhea Will monitor as it has now virtually resolved. #QUENTIN: has resolved. Cr is down to 0.91 from 2.10 on admission #Leucocytosis: wbc was 19.2 on admission, but is down to 12.9. NO clear evidence of infection. Will check urinalysis. Will monitor. may have been due to the diarrhea which has now resolved. #Indeterminate troponins: initial troponin was 38 and came up slightly to 46. Denies any chest pain, may be due to decreased clearance from QUENTIN. Has no chest pain. Will monitor. #Anxiety and depression: stable. #Schizophrenia and PTSD: on seroquel and fluvoxamine as well as haldol #Parkinson's disease: has chronic unsteady gait and is on amantadine and sinemet. #History of gout: on allopurinol. #Hyperlipidemia: on statin #BPH with obstructive pathology: on flomax. #GERD: on PPI DVT prophylaxis: heparin Charges/Coding Visit Charges Inpatient E&M: 40096 Subs Hosp L2
--- NOTE | 2025-03-03 15:38 | CHAPLAIN ---
Type of Pastoral Visit _x__ Initial Visit ___ Follow-up Visit ___ On-call Visit ___ General Patient Visit ___ Spiritual Assessment ___ Family Conference ___ Bereavement ___ Rapid Response ___ Code Blue ___ Other (describe below) Pastoral Care Referral From _x__ Patient ___ Family ___ Nurse ___ Physician ___ Production Operator ___ Pull Over ___ Other (describe below) Sacrament/Intervention _x__ Active listening ___ Anointing ___ Mosque ___ Bereavement ___ Communion ___ [place]chan exploration ___ _x__ Life review _x_ Prayer ___ Reconciliation ___ Sacrament of Sick _x__ Supportive presence ___ Wedding ___ Other (describe below) Pastoral Comments patient is from a local [place] and is very talkative; pt asks many questions and in particular about dates and ages; pt is able to calculate numbers but has lower functioning on verbal skills; pt can identify what hurts but does not discuss his health needs or his feelings without some kind reminders of what the medical team is here for; pt says it is fine to say a prayer
--- NOTE | 2025-03-03 15:38 | CHAPLAIN ---
Type of Pastoral Visit _x__ Initial Visit ___ Follow-up Visit ___ On-call Visit ___ General Patient Visit ___ Spiritual Assessment ___ Family Conference ___ Bereavement ___ Rapid Response ___ Code Blue ___ Other (describe below) Pastoral Care Referral From _x__ Patient ___ Family ___ Nurse ___ Physician ___ Government Sales Manager ___ Assisted Living Associate ___ Other (describe below) Sacrament/Intervention _x__ Active listening ___ Anointing ___ Sabianist ___ Bereavement ___ Communion ___ [place] exploration ___ _x__ Life review _x_ Prayer ___ Reconciliation ___ Sacrament of Sick _x__ Supportive presence ___ Wedding ___ Other (describe below) Pastoral Comments patient is from a local care home and is very talkative; pt asks many questions and in particular about dates and ages; pt is able to calculate numbers but has lower functioning on verbal skills; pt can identify what hurts but does not discuss his health needs or his feelings without some kind reminders of what the medical team is here for; pt says it is fine to say a prayer
[2025-03-03 16:00] VITALS: BP 149/96; PULSE 106; RESP 16; TEMP 36.6; O2SAT 96
[2025-03-03 17:15] LABS: Bacteria 0 SEEN /hpf (None Seen); Mucous, Urine 0 SEEN /hpf (<or=2+); Red Blood Cells-Urine 0 SEEN /hpf (0-5); Squamous Epithelial Cells - UA 0 SEEN /hpf (0-5); White Blood Cells 0 SEEN /hpf (0-5)
[2025-03-03 17:55] LABS: Color, Urine Yellow (Yellow); Glucose, Dipstick Normal (Normal); Ketone-Dipstick Negative (Negative); Leukocyte Esterase-Dipstick Negative /ul (Negative); Nitrite-Dipstick Negative (Negative); Occult Blood-Urine Negative /ul (Negative); Protein-Dipstick Negative (Negative); Urine Bilirubin Dipstick Negative (Negative); Urine Clarity Clear (Clear); Urine Urobilinogen Normal (Normal)
[2025-03-03 20:00] VITALS: BP 147/102; PULSE 102; RESP 16; TEMP 36.2; O2SAT 97
[2025-03-03] MEDS: 0.9% Saline Lock 10 ML Syringe IV ×2 (20:01→21:55)
[2025-03-03] MEDS: Divalproex Sodium 250 MG Tablet 500 MG PO (21:56)
[2025-03-03] MEDS: fluvoxaMINE Maleate 50 MG Tablet PO (21:56)
[2025-03-03] MEDS: Pravastatin 40 MG Tablet PO (21:56)
[2025-03-03 22:05] VITALS: BP 151/98; PULSE 97; RESP 14; TEMP 36.3; O2SAT 97
[2025-03-04 05:20] VITALS: BP 160/100; PULSE 86; RESP 14; TEMP 36.1; O2SAT 97
[2025-03-04] MEDS: CARBIDOPA/LEVODOPA CR 50/200 Tablet PO (05:23)
[2025-03-04 05:34] VITALS: BMI 28.7
[2025-03-04 06:04] LABS: Absolute Lymphocyte Count 2.22 X10^3/uL (0.83-4.51); Absolute Neutrophil Count 6.6 X10^3/uL (2.0-7.7); Basophil# 0.03 X10^3/uL; Basophil% 0.3 % (0-1); Eosinophil# 0.08 X10^3/uL; Eosinophils% 0.8 % (0-5); Hematocrit 39.8 % (40-54); Hemoglobin 13.6 g/dL (13.0-16.5); Lymphocyte # 2.22 X10^3/ul (0.83-4.51); Lymphocyte % 22.8 % (19-41); Mean Corp Hgb Conc 34.2 g/dL (32-36); Mean Corpuscular Volume 93.6 fL (80-94); Mean Platelet Vol. 9.4 fl (6.2-12.0); Monocyte# 0.78 X10^3/uL; NRBC Flagged by Analyzer 0 % (0-5); Neutrophil # 6.55 X10^3/uL (2.7-7.7); Neutrophil % 67.4 % (47-70); Platelet Count 190 K/mm3 (150-450); RBC Distribution Width CV 13.2 % (11.6-14.6); RBC Distribution Width SD 45.2 fl (35.1-43.9); Red Blood Count 4.25 M/mm3 (4.6-6.2); White Blood Count 9.7 K/mm3 (4.4-11.0)
[2025-03-04 06:33] LABS: Anion Gap 10 (5-15); BUN 11 mg/dL (4-19); BUN/Creat Ratio 14.7 RATIO (10-20); Calcium,Total 9.2 mg/dL (7.6-11.0); Carbon Dioxide 28.7 mmol/L (21.0-32.0); Chloride 106 mmol/L (98-108); Creatinine, Serum 0.76 mg/dL (0.70-1.20); EST Glomerular Filtration Rate 108 (>60); Estimated Creatinine Clearance 124.96 ml/min (50-250); Glucose 86 mg/dL (70-99); Sodium Level 144 mmol/L (133-145)
[2025-03-04 07:34] VITALS: O2SAT 96
[2025-03-04 09:54] VITALS: BP 158/98; PULSE 120; RESP 18; TEMP 36.1; O2SAT 100
--- NOTE | 2025-03-04 09:54 | DS.PCM_ITS ---
Providers Date of Admission: 03/02/25 Date of Discharge: 03/04/25 Primary Care Physician: Dr. Emiliano Hu MD Reason For Visit: ABD PAIN/ DISTENSION W/ DIARRHEA Diagnosis Discharge Diagnosis (1) Elevated troponin: Status: Acute Code(s): R79.89 - Other specified abnormal findings of blood chemistry (2) Diarrhea: Status: Acute Code(s): R19.7 - Diarrhea, unspecified (3) Leukocytosis: Status: Acute Code(s): D72.829 - Elevated white blood cell count, unspecified (4) Elevated lactic acid level: Status: Acute Code(s): R79.89 - Other specified abnormal findings of blood chemistry Plan #Diarrhea * this was in the setting of bowel prep for scheduled colonoscopy * diarrhea has now resolved. C diff, enteric pathogens negative * encourage oral hydration. Colonoscopy was due to be done yesterday, but this was not done because of the diarrhea * Will monitor as it has now virtually resolved. * #QUENTIN: has resolved. Cr is down to 0.91 from 2.10 on admission #Leucocytosis: * wbc was 19.2 on admission, but is down to 12.9. * NO clear evidence of infection. Will check urinalysis. Will monitor. * may have been due to the diarrhea which has now resolved. #Indeterminate troponins: * initial troponin was 38 and came up slightly to 46. * Denies any chest pain, may be due to decreased clearance from QUENTIN. * Has no chest pain. * Will monitor. #Anxiety and depression: stable. #Schizophrenia and PTSD: on seroquel and fluvoxamine as well as haldol #Parkinson's disease: has chronic unsteady gait and is on amantadine and sinemet. #History of gout: on allopurinol. #Hyperlipidemia: on statin #BPH with obstructive pathology: on flomax. #GERD: on PPI DVT prophylaxis: heparin Medications at Discharge Home Medications atenolol 50 mg tablet 50 mg PO DAILY 01/31/19 divalproex 500 mg tablet,delayed release 500 mg PO QHS 01/31/19 quetiapine 400 mg tablet,extended release 24 hr (Seroquel XR) 400 mg PO BID 01/31/19 tamsulosin 0.4 mg capsule 0.4 mg PO BID 01/31/19 allopurinol 300 mg tablet 300 mg PO DAILY 11/28/22 amantadine HCl 100 mg capsule 100 mg PO BID 11/28/22 fluvoxamine 100 mg tablet 100 mg PO 0800 11/28/22 fluvoxamine 50 mg tablet 50 mg PO QHS 11/28/22 haloperidol 5 mg tablet 5 mg PO BID 11/28/22 pravastatin 40 mg tablet 40 mg PO QHS 11/28/22 acetaminophen 650 mg tablet,extended release 1,300 mg PO Q12H PRN PAIN 03/20/23 calcium carbonate (Oyster Shell Calcium 500) 500 mg PO DAILY 03/20/23 carbidopa ER 50 mg-levodopa 200 mg tablet,extended release 1 tab PO TID TREMORS 03/20/23 bisacodyl 5 mg tablet,delayed release 5 mg PO ONCE #4 tabs 12/26/24 polyethylene glycol 3350 17 gram/dose oral powder 238 g PO ONCE #238 grams 12/26/24 carbidopa 25 mg-levodopa 100 mg tablet 3 tab PO 4X/DAY 02/28/25 lactulose 10 gram/15 mL oral solution (Enulose) 03/02/25 multivitamin with folic acid 400 mcg tablet (Daily-Jennie (with folic acid)) 1 tab PO DAILY 03/02/25 Hospital Course Operations None Procedures None Summary of Care Provided Minutes Spent on Discharge: 45 Hospital Course: Patient is a 50-year-old male with a past medical history as outlined was admitted through the ED on 03/02/2025 for shortness of breath and rib pain. Patient was due to have colonoscopy on the day of admission and so had had a colonoscopy prep the night before. He had large bowel movements and diarrhea started complaining of increased abdominal distention and discomfort as well as pain in his ribs and shortness of breath. The EMS was called. When they arrived patient was hypotensive so he was hydrated with IV fluids and brought into the ED. on admission he was found to be in QUENTIN with elevated creatinine of 2.1. He was admitted and managed for QUENTIN with abdominal distention likely due to colon prep for colonoscopy. C. difficile and enteric pathogens were negative. QUENTIN resolved and creatinine trended downwards. He also had leukocytosis but this also trended down was thought to have likely been due to the diarrhea. He had indeterminate troponins with initial troponin being 38 slightly trended up to 46. However in light of the QUENTIN it was thought that this may have been due to decreased clearance from the kidneys. Of note because of the diarrhea his home meds were held on admission and this included his atenolol. His heart rate was fluctuating in the 100s and 110s and even up to the 120s sometimes because of his not getting his atenolol. On discharge patient was to resume his atenolol. He is follow-up with his primary care doctor within 1 to 2 weeks and follow-up with gastroenterology for the colonoscopy. Patient was seen and examined prior to discharge. He had no active complaints. Review of systems otherwise negative. Labs and vitals reviewed. Home medication reviewed and reconciled. Physical Exam Const alert and no apparent distress Constitutional Narrative: alert, has some underlying MRDD General Appearance: cooperative and comfortable HEENT normocephalic and head/scalp atraumatic Eyes PERRL and EOMs intact bilaterally Neck no lymphadenopathy and supple Lymph Lymphatic: no lymphadenopathy noted Resp normal respiratory effort, normal air movement and clear to auscultation bilaterally Cardio regular rate, regular rhythm, S1 normal heart sound, S2 normal heart sound and no murmurs GI normal to inspection, nondistended, normoactive bowel sounds, soft to palpation, non-tender and non-distended Extremity normal to inspection, full ROM, normal capillary refill, no clubbing, cyanosis or edema and no calf tenderness General Extremity: no tenderness to palpation of joints or extremities Skin General Skin Exam: no breakdown Neuro CN's II-XII intact bilaterally, moves all extremities, no focal motor deficits and no sensory deficits noted Sensorium / Orientation: awake Motor Exam: strength 5/5 throughout and general weakness Psych cooperative Psych Narrative: underlying MRDD Mood & Affect: flat affect Weight / BMI Weight Weight: 194 lb 7.163 oz Body Mass Index (BMI) 28.7 ABG / Lab / Microbiology Data 03/04/25 04:58 03/04/25 04:58 Laboratory: Laboratory Results - last 24 hr 03/03/25 17:05: Urine Color Yellow, Urine Clarity Clear, Urine pH 6.0, Ur Specific [place] 1.010, Urine Protein Negative, Urine Glucose (UA) Normal, Urine Ketones Negative, Urine Occult Blood Negative, Urine Nitrite Negative, Urine Bilirubin Negative, Urine Urobilinogen Normal, Ur Leukocyte Esterase Negative, Urine RBC 0 SEEN, Urine WBC 0 SEEN, Ur Squamous Epith Cells 0 SEEN, Urine Bacteria 0 SEEN, Urine Mucus 0 SEEN 03/04/25 04:58: WBC 9.7, RBC 4.25 L, Hgb 13.6, Hct 39.8 L, MCV 93.6, MCH 32.0, MCHC 34.2, RDW Std Deviation 45.2 H, RDW Coeff of Rafa 13.2, Plt Count 190, MPV 9.4, Immature Gran % (Auto) 0.700, Neut % (Auto) 67.4, Lymph % (Auto) 22.8, Clarke % (Auto) 8.0, Eos % (Auto) 0.8, Baso % (Auto) 0.3, Absolute Neuts (auto) 6.6, Absolute Lymphs (auto) 2.22, Nucleated RBC % 0, Sodium 144, Potassium 4.0, Chloride 106, Carbon Dioxide 28.7, Anion Gap 10, BUN 11, Creatinine 0.76, Estim Creat Clear Calc 124.96, Est GFR (MDRD) Non-Af 108, BUN/Creatinine Ratio 14.7, Glucose 86, Calcium 9.2 Microbiology: Microbiology 03/02/25 01:05 Stool Stool Lactoferrin - Final 03/02/25 01:05 Stool Enteric Bacteriology - Final 03/02/25 01:05 Stool Clostridioides difficile (PCR) - Final D/C Instructions Discharge Diet: Low fat / Low cholesterol Discharge Activity: Return to Normal Activity Weight Bearing Status: Weight bearing as tolerated Call your doctor if you observe: Fever of 101 or Higher, Shortness of breath, Dizziness, Swelling in the ankles and Chest pain DC O2, CPAP, BIPAP Needs Home O2 Discharge instructions: No Meaningful Use Info Meaningful Use Meaningful Use Diagnoses (Choose all that apply): None applicable Ischemic Stroke Statin Dosing Therapy Reference: STATIN DOSE THERAPY REFERENCE: * Patients > 75 years receive moderate or high dose statin therapy. * Patients 75 years or YOUNGER should receive HIGH intensity statin dose unless contraindicated. You will be required to document reason for non-treatment if statin daily dose does not meet guidelines. HIGH DOSE STATIN THERAPY DAILY Atorvastatin > than or = to 40 mg Rosuvastatin > than or = to 20 mg Amlodipine + Atorvastatin > than or = to 2.5/40 mg Ezetimibe + Simvastatin 10/80 mg Simvastatin 80mg Discharge Plan Admission Admit Date/Time: 03/02/25 16:47 Primary Reason for Your Visit: diarrhea Attending Provider: Sobia Piedra Primary Care Provider: Emiliano Hu Chi Consulting Providers: Janell Denny Instructions Patient Instructions: ED Diet Vomiting Diarrhea Discharge Orders/Prescriptions Prescriptions: Continued atenolol 50 mg tablet 50 mg PO DAILY divalproex 500 mg tablet,delayed release (DR/EC) 500 mg PO QHS quetiapine [Seroquel XR] 400 mg tablet extended release 24 hr 400 mg PO BID tamsulosin 0.4 mg capsule 0.4 mg PO BID amantadine HCl 100 mg capsule 100 mg PO BID haloperidol 5 mg tablet 5 mg PO BID allopurinol 300 mg tablet 300 mg PO DAILY pravastatin 40 mg tablet 40 mg PO QHS fluvoxamine 50 mg tablet 50 mg PO QHS fluvoxamine 100 mg tablet 100 mg PO 0800 acetaminophen 650 mg Tablet Extended Release 1,300 mg PO Q12H PRN (Reason: PAIN) calcium carbonate [Oyster Shell Calcium 500] 500 mg calcium (1,250 mg) Tablet 500 mg PO DAILY carbidopa-levodopa 50-200 mg tablet extended release 1 tab PO TID carbidopa-levodopa 25-100 mg tablet 3 tab PO 4X/DAY lactulose [Enulose] 10 gram/15 mL solution Patient Comments: [NO ORIGINAL SIG] multivitamin with folic acid [Daily-Jennie (with folic acid)] 400 mcg tablet 1 tab PO DAILY bisacodyl 5 mg tablet,delayed release (DR/EC) 5 mg PO ONCE Qty: 4 0RF Rx Instructions: colonoscopy prep polyethylene glycol 3350 17 gram/dose powder 238 g PO ONCE Qty: 238 0RF Rx Instructions: Mix into 64oz clear liquid for colonoscopy prep Referrals / Follow Up: Emiliano Hu Chi, MD [Primary Care Provider] - Within 1 Week Disposition Disposition (needs filled in before D/C Order can be placed): NonSkilled NH/Intermed Care Charges/Coding Visit Charges Inpatient E&M: 13430 Disch Hosp >30min
[2025-03-04] MEDS: QUEtiapine 100 MG Tablet 400 MG PO (10:34)
[2025-03-04] MEDS: Tamsulosin HCl 0.4 MG Capsule PO (10:35)
[2025-03-04] MEDS: Carbidopa/Levodopa 25/100 Tablet PO (10:36)
[2025-03-04] MEDS: fluvoxaMINE Maleate 50 MG Tablet 100 MG PO (10:37)
[2025-03-04] MEDS: Amantadine 100 MG Capsule PO (10:38)
[2025-03-04] MEDS: Haloperidol 5 MG Tablet PO (10:38)
[2025-03-04] MEDS: Allopurinol 300 MG Tablet PO (10:43)
[2025-03-04 10:57] VITALS: BP 158/93; PULSE 123; RESP 18; TEMP 36.4; O2SAT 100
== END 2025-03-04 12:26 ==
LOC: ED 16:53 → PCU 03-03 07:08
PROVIDERS: Admitting Provider Family Medicine; Emergency Provider Emergency Medicine; PCP Family Medicine Geriatric Medicine; Visit Provider Student in an Organized Health Care Education/Training Program
DX: N17.9 Acute kidney failure, unspecified (principal); G20.A1 Parkinson's disease without dyskinesia, without mention of fluctuations; F20.9 Schizophrenia, unspecified; J44.9 Chronic obstructive pulmonary disease, unspecified; F32.1 Major depressive disorder, single episode, moderate; E87.20 Acidosis, unspecified; N13.8 Other obstructive and reflux uropathy; I10 Essential (primary) hypertension; E66.9 Obesity, unspecified; E78.00 Pure hypercholesterolemia, unspecified; R19.7 Diarrhea, unspecified; K21.9 Gastro-esophageal reflux disease without esophagitis; I95.9 Hypotension, unspecified; M10.9 Gout, unspecified; D72.829 Elevated white blood cell count, unspecified; F43.10 Post-traumatic stress disorder, unspecified; R79.89 Other specified abnormal findings of blood chemistry; F42.9 Obsessive-compulsive disorder, unspecified; K63.89 Other specified diseases of intestine; N40.1 Benign prostatic hyperplasia with lower urinary tract symptoms; Z99.81 Dependence on supplemental oxygen; Z79.899 Other long term (current) drug therapy; F41.9 Anxiety disorder, unspecified; Z68.30 Body mass index [BMI] 30.0-30.9, adult; I45.10 Unspecified right bundle-branch block; R06.02 Shortness of breath; R07.89 Other chest pain
CPT/HCPCS: 36415; 71045; 74176; 80048; 80053; 80061; 81001; 82140; 83605; 83630; 83690; 83735; 84100; 84145; 84484; 85025; 87040; 87177; 87209; 87493; 87506; 93005; 94668; 96361; 96365; 96366; 96372; 97802; 99221; 99285; A4216; G0378

== ENCOUNTER → 2025-03-14 | Outpatient (CLI) | payer MEDICARE, MEDICAID, SELFPAY ==
--- NOTE | 2025-03-14 11:45 | RAD_ITS ---
PROCEDURE: ABD INC DECUB AND/OR ERECT 03/14/2025 REASON FOR EXAM: FECAL INPACTION OF COLON TECHNIQUE: Single AP upright view and 2 AP supine views to include the entire abdomen and pelvis, 3 total images FINDINGS: No free air identified. Large amount of colonic stool ascending, transverse and descending left colon. Gaseous prominence of the sigmoid without fecal material seen. No evidence of fecal impaction at the rectum. No gaseous distention of small bowel seen. Question left base retrocardiac atelectasis. RAD/Abd Inc Decub and/or Erect IMPRESSION: No free air identified. Large amount of colonic stool ascending, transverse and descending left colon. Gaseous prominence of the sigmoid without fecal material seen. No evidence of fecal impaction at the rec maliha. Reading Location: [id number]
[2025-03-14 12:20] LABS: Absolute Lymphocyte Count 2.07 X10^3/uL (0.83-4.51); Absolute Neutrophil Count 5.4 X10^3/uL (2.0-7.7); Basophil# 0.03 X10^3/uL; Basophil% 0.4 % (0-1); Eosinophil# 0.08 X10^3/uL; Hematocrit 42.6 % (40-54); Hemoglobin 14.6 g/dL (13.0-16.5); Lymphocyte # 2.07 X10^3/ul (0.83-4.51); Lymphocyte % 25.1 % (19-41); Mean Corp Hgb Conc 34.3 g/dL (32-36); Mean Corpuscular Volume 93.4 fL (80-94); Mean Platelet Vol. 9.1 fl (6.2-12.0); Monocyte% 7.3 % (0-10); NRBC Flagged by Analyzer 0 % (0-5); Neutrophil # 5.42 X10^3/uL (2.7-7.7); Neutrophil % 65.5 % (47-70); Platelet Count 245 K/mm3 (150-450); RBC Distribution Width CV 12.8 % (11.6-14.6); RBC Distribution Width SD 43.8 fl (35.1-43.9); Red Blood Count 4.56 M/mm3 (4.6-6.2); White Blood Count 8.3 K/mm3 (4.4-11.0)
[2025-03-14 13:11] LABS: Anion Gap 11 (5-15); BUN 10 mg/dL (4-19); BUN/Creat Ratio 10.9 RATIO (10-20); Calcium,Total 9.7 mg/dL (7.6-11.0); Chloride 101 mmol/L (98-108); Creatinine, Serum 0.89 mg/dL (0.70-1.20); EST Glomerular Filtration Rate 103 (>60); Glucose 92 mg/dL (70-99); Potassium 4.5 mmol/L (3.3-5.1); Sodium Level 142 mmol/L (133-145)
== END | disposition home or self-care (01) ==
PROVIDERS: PCP Family Medicine Geriatric Medicine; Referring Provider Family Medicine Geriatric Medicine; Visit Provider Family Medicine Geriatric Medicine
DX: K56.41 Fecal impaction (principal); I10 Essential (primary) hypertension; N17.9 Acute kidney failure, unspecified
CPT/HCPCS: 36415; 74019; 80048; 85025

== ENCOUNTER → 2025-04-05 | Outpatient (CLI) | payer MEDICARE, MEDICAID, SELFPAY ==
[2025-04-05 12:52] LABS: Absolute Lymphocyte Count 1.82 X10^3/uL (0.83-4.51); Absolute Neutrophil Count 3.7 X10^3/uL (2.0-7.7); Basophil# 0.02 X10^3/uL; Basophil% 0.3 % (0-1); Eosinophil# 0.04 X10^3/uL; Eosinophils% 0.7 % (0-5); Hemoglobin 14.5 g/dL (13.0-16.5); Lymphocyte # 1.82 X10^3/ul (0.83-4.51); Lymphocyte % 29.6 % (19-41); Mean Corp Hgb Conc 34.5 g/dL (32-36); Mean Corpuscular Hgb 31.9 pg (27.0-32.0); Mean Corpuscular Volume 92.3 fL (80-94); Mean Platelet Vol. 9.3 fl (6.2-12.0); Monocyte# 0.51 X10^3/uL; Monocyte% 8.3 % (0-10); NRBC Flagged by Analyzer 0 % (0-5); Neutrophil # 3.72 X10^3/uL (2.7-7.7); Neutrophil % 60.6 % (47-70); Platelet Count 190 K/mm3 (150-450); RBC Distribution Width CV 12.7 % (11.6-14.6); RBC Distribution Width SD 43.2 fl (35.1-43.9); Red Blood Count 4.55 M/mm3 (4.6-6.2); White Blood Count 6.1 K/mm3 (4.4-11.0)
[2025-04-05 13:32] LABS: ALB/GLOB Ratio 1.8 RATIO (0.9-2.4); AST(SGOT) 17 U/L (<=37); Alanine Aminotransfer ALT/SGPT 7 U/L (<=46); Albumin, Serum 4.6 g/dL (3.5-5.0); Alkaline Phosphatase 119 U/L (40-129); Anion Gap 10 (5-15); BUN 11 mg/dL (4-19); BUN/Creat Ratio 13.6 RATIO (10-20); Calcium,Total 9.5 mg/dL (7.6-11.0); Carbon Dioxide 27.9 mmol/L (21.0-32.0); Chloride 104 mmol/L (98-108); Cholesterol 107 mg/dL (<=200); Creatinine, Serum 0.83 mg/dL (0.70-1.20); EST Glomerular Filtration Rate 105 (>60); Globulin 2.6 g/dL (2.2-4.2); Glucose 91 mg/dL (70-99); High Density Lipoprotein 45 mg/dL; Low Density Lipoprotein Calc. 52 mg/dL; Potassium 4.4 mmol/L (3.3-5.1); Protein, Total 7.2 g/dL (5.9-8.4); Sodium Level 142 mmol/L (133-145); Total Bilirubin 0.41 mg/dL (0.00-1.30); Triglycerides 54 mg/dL; Uric Acid 4.3 mg/dL (3.5-7.2); Very Low Density Lipoprotein 11 mg/dL (5-40)
== END | disposition home or self-care (01) ==
LOC: LAB 11:45
PROVIDERS: PCP Family Medicine Geriatric Medicine; Referring Provider Family Medicine Geriatric Medicine; Visit Provider Family Medicine Geriatric Medicine
DX: I10 Essential (primary) hypertension (principal); E78.5 Hyperlipidemia, unspecified; M10.9 Gout, unspecified
CPT/HCPCS: 36415; 80053; 80061; 84443; 84550; 85025

== ENCOUNTER → 2025-10-04 | Outpatient (CLI) | payer MEDICARE, MEDICAID, SELFPAY ==
[2025-10-04 10:25] LABS: Hematocrit 43.5 % (40-54); Hemoglobin 14.8 g/dL (13.0-16.5); Immature Granulocytes Count 0.050 X10^3/uL (0.0-0.0); Mean Corp Hgb Conc 34.0 g/dL (32-36); Mean Corpuscular Volume 94.8 fL (80-94); Mean Platelet Vol. 9.1 fl (6.2-12.0); NRBC Flagged by Analyzer 0 % (0-5); Platelet Count 226 K/mm3 (150-450); RBC Distribution Width CV 12.5 % (11.6-14.6); RBC Distribution Width SD 43.2 fl (35.1-43.9); Red Blood Count 4.59 M/mm3 (4.6-6.2); White Blood Count 8.3 K/mm3 (4.4-11.0)
[2025-10-04 11:35] LABS: Uric Acid 3.3 mg/dL (3.5-7.2)
[2025-10-04 11:43] LABS: AST(SGOT) 18 U/L (<=37); Alanine Aminotransfer ALT/SGPT < 5 U/L (<=46); Albumin, Serum 4.4 g/dL (3.5-5.0); Alkaline Phosphatase 112 U/L (40-129); BUN 9 mg/dL (4-19); BUN/Creat Ratio 11.3 RATIO (10-20); Calcium,Total 9.6 mg/dL (7.6-11.0); Globulin 2.6 g/dL (2.2-4.2); Glucose 91 mg/dL (70-99); Potassium 4.5 mmol/L (3.3-5.1)
[2025-10-04 11:44] LABS: Anion Gap 10 (5-15); Carbon Dioxide 28.1 mmol/L (21.0-32.0); Chloride 100 mmol/L (98-108)
[2025-10-04 13:47] LABS: Color, Urine Straw (Yellow); Glucose, Dipstick Normal (Normal); Ketone-Dipstick Negative (Negative); Leukocyte Esterase-Dipstick Negative /ul (Negative); Nitrite-Dipstick Negative (Negative); Occult Blood-Urine Negative /ul (Negative); Protein-Dipstick Negative (Negative); Specific Gravity, Urine 1.010 (1.002-1.030); Urine Bilirubin Dipstick Negative (Negative)
[2025-10-04 18:15] LABS: Xtra Tube Kwok EXTRA TUBE
== END | disposition home or self-care (01) ==
LOC: POLAB3 10:14
PROVIDERS: PCP Family Medicine Geriatric Medicine; Visit Provider Family Medicine Geriatric Medicine
DX: I10 Essential (primary) hypertension (principal); M10.9 Gout, unspecified; R35.0 Frequency of micturition
CPT/HCPCS: 36415; 80053; 81002; 84443; 84550; 85025; 87086; 87088